=== PATIENT | male | born 1930 | race Caucasian/White ===

== ENCOUNTER 2016-12-06 11:38 | Day surgery (SDC) | payer MEDICARE, OTHER ==
[~2016-12-06 11:38] MED LIST: METOCLOPRAMIDE HCL 5 MG/ML VIAL IV PRN; MORPHINE SULFATE 2 MG/ML DISP.SYRIN IV PRN; NORMAL SALINE 1,000 ML IV PRN; ONDANSETRON HCL/PF 2 MG/ML VIAL IV PRN; oxyCODONE HCL/ACETAMINOPHEN 1 TAB TABLET PO PRN
[2016-12-06] MEDS ORDERED: RINGER'S SOLUTION,LACTATED 1,000 ML IV ONE (12:25)
[2016-12-06] MEDS ORDERED: NORMAL SALINE 1,000 ML IV ONE ×2 (13:25)
--- NOTE | 2016-12-06 13:37 | OR ---
Operative Report - Dictated Report Narrative: Location: Main OR Anesthesia: None Preoperative Diagnosis: BPH with obstruction Postoperative Diagnosis: Same Procedure: #1 flexible cystoscopy with washing for cytology and culture Indications: 86-year-old male underlying dementia and large prostate on ultrasound. Above-mentioned procedures indicated to assess bladder for BPH with obstruction versus other potential cause for urinary symptomatology. Description: Consent obtained. Placed in the supine position. Prepped and draped. Time-out taken . Flexible Scope inserted into the urethra and navigated to the bladder with ease. No tumors stones or suspicious lesions. He does have some early trabeculation but no significant I pressure change or evidence of permanent bladder damage. Ureters normal in number and position . On retroflexion there is a prominent intravesical prostate, does look a bit obstructing. Bladder capacity definitely a bit decreased. Washing obtained sent for cytology and culture. Prostate is medium to long with significant bilobar hypertrophy again does look a bit obstructing. Urethra otherwise normal. EBL: 0 Specimen: Washing for cytology and culture Condition: tolerate procedure Important Findings: Early obstructive change with decreased capacity and cystoscopic evidence of BPH with obstruction. Probably does have a component of neurogenic bladder/effect from memory issues. Plan is to start with Flomax and Proscar to treat BPH give him a little bit of time see if things improve and if not had Myrbetriq 50 mg daily in roughly 4-6 weeks. FOLLOW UP: I plan on seeing him in 3 months with an ultrasound and to see how he is doing. Can make decision on Myrbetriq at that time or sooner if he does not progress rapidly with the urinary symptomatology. TURP is an option but I would rather avoid especially in the setting of dementia as there are lower success rates secondary to underlying bladder pathology that is related primarily to the bladder and not to the obstructive causes. I did place him on Levaquin 500 mg 3 days.
[2016-12-06] MEDS ORDERED: LIDOCAINE HCL 10 APPL CARTRIDGE TP ONE (13:39)
[2016-12-06] MEDS ORDERED: LEVOFLOXACIN 500 MG TABLET PO ONE (14:00)
[2016-12-06 14:13] VITALS: BP 148/85
== END 2016-12-06 11:39 | disposition home or self-care (01) ==
LOC: AMB 11:38
PROVIDERS: ATTEND Urology
PROC: 3E1K88X Irrigation of Genitourinary Tract using Irrigating Substance, Via Natural or Artificial Opening Endoscopic, Diagnostic (ICD-10-PCS; 2016-12-06)
PROC: 0TJB8ZZ Inspection of Bladder, Via Natural or Artificial Opening Endoscopic (ICD-10-PCS; principal; 2016-12-06 13:00)
DX: N40.1 Benign prostatic hyperplasia with lower urinary tract symptoms (principal); N13.8 Other obstructive and reflux uropathy; F03.90 Unspecified dementia, unspecified severity, without behavioral disturbance, psychotic disturbance, mood disturbance, and anxiety; Z87.891 Personal history of nicotine dependence; Z68.31 Body mass index [BMI] 31.0-31.9, adult

== ENCOUNTER 2019-03-27 18:40 | Inpatient (IN) ==
--- NOTE | 2019-03-27 18:56 | ERNOTE ---
Lower Extremity HPI - Narrative Date of Service: 03/27/19 - General Lower Extremities Pain: hip: right Time Seen by Provider: 03/27/19 18:49 Source: RN notes reviewed, old records Exam Limitations: dementia - Immun/Allergies/Home Medications Immunizations: IMMUNIZATION HX Immunizations Up to Date Yes History of Influenza Vaccine More Information Required Allergies/Adverse Reactions: Allergies Allergy/AdvReac Type Severity Reaction Status Date / Time No Known Allergies Allergy Verified 03/27/19 18:46 Home Medications: HOME MEDICATIONS ALPRAZolam [Xanax] 0.25 mg PO BID PRN 12/05/16 [Last Taken Unknown] Lisinopril [Zestril] 10 mg PO DAILY 12/05/16 [Last Taken Unknown] Memantine HCl [Namenda] 5 mg PO DAILY 12/05/16 [Last Taken Unknown] Mirabegron [Myrbetriq] 50 mg PO DAILY 12/05/16 [Last Taken Unknown] Sertraline HCl [Zoloft] 50 mg PO DAILY 12/05/16 [Last Taken Unknown] Finasteride [Proscar] 5 mg PO DAILY #30 tablet 12/06/16 [Last Taken Unknown] Levofloxacin [Levaquin] 500 mg PO DAILY #3 tablet 12/06/16 [Last Taken Unknown] Tamsulosin HCl [Flomax] 0.4 mg PO HS #30 cap.er.24h 12/06/16 [Last Taken Unknown] Alprazolam 1 mg PO TID 03/27/19 [Last Taken Unknown] busPIRone HCL [Buspar] 10 mg PO BID 03/27/19 [Last Taken Unknown] - History of Present Illness Narrative: Jair is a 88-year-old male brought to the emergency department from the [facility] with right hip pain due to a fall. He apparently fell out of his chair earlier this evening. His detention records indicate that he has had several falls in the last 24 hours. He has a history of dementia and has a history of combative behavior at times. He was given 50 mcg of fentanyl by EMS personnel in route and is currently resting comfortably. Date (Duration): 03/27/19 Time (Timing): 18:00 Method of Injury: Reports: fell Reason for Fall: Reports: unknown Prior Treament: Denies: recently seen Review of Systems - Narrative Narrative: Unable to obtain ROS due to patient condition Medical History (Last Reviewed 03/27/19 @ 20:56 by Katy Santillan NP) Anxiety Arthritis Dementia Hypertension Insomnia Memory impairment Fracture, tibia Surgical History: Surgical History (Last Reviewed 03/27/19 @ 20:56 by Katy Santillan NP) History of knee replacement procedure of left knee Social History: (Last Reviewed 03/27/19 @ 20:56 by Katy Santillan NP) Social History: detention: Yes current occupational status: retired Highest education level completed: high school graduate Tobacco: Smoking Status: Former smoker Physical Exam - Physical Exam General Appearance: Present: wd/wn, no apparent distress, sleeping/easy to arouse Head Exam: Present: normal inspection, no evidence of injury Respiratory: Present: no respiratory distress, normal breath sounds, no accessory muscle use, lungs clear Cardiovascular/Chest: Present: regular rate, rhythm, normal peripheral pulses Peripheral Pulses: N=norm/S=strong/W=weak/B=bound/A=absent: Dorsalis-pedis (R): Normal, Dorsalis-pedis (L): Normal Gastrointestinal/Abdominal: Present: normal bowel sounds, nondistended, soft Extremity Exam: Present: no edema, other - Right leg shortened and externally rotated Skin Exam: Present: normal color, warm/dry Progress - Results and Orders Patient's Lab Results:: I have reviewed the patient's lab results. - Vital Signs Patient's Vital Signs:: I have reviewed the patient's vital signs. Vital Signs: Vital Signs 03/27/19 18:43 Temperature 36.1 C Pulse Rate 107 H Respiratory Rate 21 H Blood Pressure 179/105 H O2 Sat by Pulse Oximetry 99 - EKG EKG #1 EKG: NSR - With first-degree AV block EKG read: Reviewed by me - X-Ray X-Ray #1 X-Ray: hip - Right Interpretation: Interp. by me X-ray Comments: Intertrochanteric fracture of right femur X-Ray #2 X-Ray: chest Interpretation: Interp. by me X-ray Comments: Cardiomegaly without acute cardiopulmonary findings - Progress/Reassessment Chief Complaint: Hip Pain/Injury Progress:: Unchanged Plan - Plan Plan: Dr. Mitchell was contacted and plans to repair the hip fracture tomorrow as long as the patient is able to be medically cleared. Dr. Ag was then contacted and agreed to admit the patient and manage him medically. Departure Clinical Impression: Hip fracture Qualifiers: Encounter type: initial encounter Fracture type: closed Laterality: right Qualified Code(s): S72.001A - Fracture of unspecified part of neck of right femur, initial encounter for closed fracture - Departure Disposition: Still a patient Condition: Stable
[2019-03-27 20:12] LABS: Hemoglobin 13.8 gm/dL (13.5-18.0); Mean Cell Volume 97.9 fl (78-100); Mean Corpuscular Hemoglobin 32.9 pg (27-31); Mean Corpuscular Hgb Conc 33.7 g/dl (32-36); Mean Platelet Volume 9.6 fl (8-11.3); Neutrophil # 4.9 K/mm3 (1.3-6.0); Neutrophil % 76.2 % (42-75.0); Platelet Count 272 K/mm3 (150-450); Red Blood Count 4.19 M/mm3 (4.7-6.0); Red Cell Distribution Width 12.5 % (11.5-14.0); White Blood Count 6.4 K/mm3 (4.0-10.5)
[2019-03-27 20:29] LABS: INR 1.12 INR (0.92-1.08)
[2019-03-27 20:36] LABS: Albumin * 4.3 gm/dl (3.4-5.0); Anion Gap 15.5 mmol/L (6.8-13.8); BUN/Creatinine Ratio 18.8 (9.0-21.6); Bilirubin, Total 0.7 mg/dL (0.0-1.1); Ca. Corrected For Albumin 8.5 mg/dL (8.4-10.2); Calcium * 9.1 mg/dL (7.9-10.9); Carbon Dioxide 26.2 mmol/L (24-32.6); Potassium 3.7 mmol/L (3.4-4.6); Total Protein 7.8 gm/dL (6.2-8.2)
[2019-03-27] MEDS ORDERED: KETOROLAC TROMETHAMINE 15 MG/ML VIAL IV PRN (22:21)
[2019-03-27] MEDS ORDERED: KETOROLAC TROMETHAMINE 30 MG/ML VIAL IV ONE (22:21)
[2019-03-27] MEDS ORDERED: MORPHINE SULFATE 4 MG/ML SYRG IV PRN (22:21)
--- NOTE | 2019-03-28 06:26 | HP ---
Chief Complaint - Chief Complaint Date of Service: 03/28/19 Time of Service: 06:25 Chief Complaint: right Hip Fracture History of Present Illness: 88-year-old M with PMHX of multiple falls in the last 24 hours, Insomnia, Memory Impairment/Dementia with combative behavior, Arthritis, Anxiety and previous fracture of the tibia s/p repair brought to [facility] ER from [facility] with c/o right hip pain secondary to fall. PCP: Dr. Arthur Henderson. Patient fell out of chair yesterday evening and brought in for further evaluation. Due to his combative behavior 50mcg of fentanyl was administered, and patient was resting comfortably upon arrival to the ER. On arrival to ER, VSS with exception of mild tachycardia. HIP X-RAY demonstrated an acute appearing right transcervical femoral neck fracture with some foreshortening. 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 There is no joint dislocation. CXR demonstrated small opacities with recommendation to follow up with repeat CXR in 6-8 weeks for resolution. EKG reviewed, NSR with Left Ant. Fascicular block with possible LVH, in comparison to last EKG completed in 09/26/2010 these are new changes, but highly doubt these changes are recent since its been 8 years. Patient has been combative overnight, received 1mg of Ativan and patient is resting comfortably. VSS. PE is largely unremarkable. On mIVFs and patient is NPO for tentative surgery. Dr. Mitchell (Ortho) consulted for higher level of care. Medical History (Last Reviewed 03/27/19 @ 20:56 by Katy Santillan NP) Anxiety Arthritis Dementia Hypertension Insomnia Memory impairment Fracture, tibia Surgical History: Surgical History (Last Reviewed 03/27/19 @ 20:56 by Katy Santillna NP) History of knee replacement procedure of left knee Social History: (Last Reviewed 03/27/19 @ 20:56 by Katy Santillan NP) Social History: long term: Yes current occupational status: retired Highest education level completed: high school graduate Tobacco: Smoking Status: Former smoker Review Of Systems (GEN) - Review of Systems Generalized/Overall Review: Present: Weakness Respiratory: Absent: Shortness of Breath Cardiac: Absent: Chest Pain, Edema Abdominal: Absent: Abdominal Pain Musculoskeletal: Present: Joint Pain - right hip pain. Absent: Joint Swelling Neurological: Present: Other - dementia with combative behavior Skin: Present: Dryness Immunizations: IMMUNIZATION HX Immunizations Up to Date Yes History of Influenza Vaccine More Information Required Allergies/Adverse Reactions: Allergies Allergy/AdvReac Type Severity Reaction Status Date / Time No Known Allergies Allergy Verified 03/27/19 18:46 Home Medications: HOME MEDICATIONS ALPRAZolam [Xanax] 1 mg PO TID 12/05/16 [Last Taken Unknown] Lisinopril [Zestril] 2.5 mg PO DAILY 12/05/16 [Last Taken Unknown] Memantine HCl [Namenda] 5 mg PO BID 12/05/16 [Last Taken Unknown] Sertraline HCl [Zoloft] 50 mg PO DAILY 12/05/16 [Last Taken Unknown] Finasteride [Proscar] 5 mg PO DAILY #30 tablet 12/06/16 [Last Taken Unknown] Tamsulosin HCl [Flomax] 0.4 mg PO HS #30 cap.er.24h 12/06/16 [Last Taken Unknown] ALPRAZolam [Xanax] 1 mg PO TID PRN 03/27/19 [Last Taken Unknown] Acetaminophen [Mapap] 1,000 mg PO BID 03/27/19 [Last Taken Unknown] Acetaminophen [Mapap] 1,000 mg PO DAILY PRN 03/27/19 [Last Taken Unknown] Bisacodyl [Dulcolax] 5 mg PO DAILY PRN 03/27/19 [Last Taken Unknown] Bisacodyl [Laxative] 10 mg PO DAILY PRN 03/27/19 [Last Taken Unknown] Bismuth Subsalicylate [Kaopectate] 30 ml PO PRN PRN 03/27/19 [Last Taken Unknown] Buspirone HCl 10 mg PO BID 03/27/19 [Last Taken Unknown] Calcium Carbonate/Vitamin D3 [Calcium 500 mg Chewable Tablet] 2 ea PO QID PRN 03/27/19 [Last Taken Unknown] Furosemide 20 mg PO DAILY PRN 03/27/19 [Last Taken Unknown] Ibuprofen 400 mg PO QID 03/27/19 [Last Taken Unknown] Lidocaine [Lidoderm] 1 ea TOPICAL DAILY 03/27/19 [Last Taken Unknown] Magnesium Hydroxide [Milk Of Magnesia] 30 ml PO DAILY PRN 03/27/19 [Last Taken Unknown] Exam - Exam Vital Signs: Vital Signs - Last Taken Temp 37.1 C 03/28/19 03:57 Pulse 77 03/28/19 03:57 Resp 18 03/28/19 03:57 BP 140/94 H 03/28/19 03:57 Pulse Ox 97 03/28/19 03:57 Constitutional: Present: Other - patient is sleeping, and with h/o dementia I highly doubt he is A0X3., Elderly ENT Exam: Present: hearing grossly normal Eye Exam: bilateral eye: normal inspection, PERRL, EOMI Neck: Present: non-tender, full range of motion, supple Respiratory: Present: chest non-tender, lungs clear, normal breath sounds, no respiratory distress, no accessory muscle use Cardiovascular/Chest: Present: normal peripheral pulses, regular rate, rhythm, no chest tenderness, no edema, no gallop, no JVD, no murmur Peripheral Pulses: dorsalis-pedis (R): 2+, dorsalis-pedis (L): 2+ Abdomen: Present: Normal bowel sounds, soft, nontender, nondistended Extremity: Present: normal range of motion, non-tender, normal inspection, no pedal edema Skin Exam: Present: normal color, warm/dry Neurologic: Present: other - unable to assess patient just received ativan 0.5 mg IV and is resting Appearance: Present: disheveled, other - dementia Eye contact: Present: uncooperative - without medication Diagnostic Studies: Abnormal Lab Results 03/27/19 03/27/19 03/27/19 Range/Units 20:10 20:10 20:10 RBC 4.19 L (4.7-6.0) M/mm3 Hct 41.0 L (42.0-52.0) % MCH 32.9 H (27-31) pg Immature Gran % (Auto) 0.50 H (0.001-0.429) % Neutrophils % 76.2 H (42-75.0) % Lymphocytes % 15.1 L (20-51) % Lymphocytes # 0.96 L (1.5-3.5) k/mm3 PT 11.0 H (9.1-10.7) Seconds INR (Anticoag Therapy) 1.12 H (0.92-1.08) INR Anion Gap 15.5 H (6.8-13.8) mmol/L Random Glucose 132 H (70-110) mg/dL Laboratory Results WBC 6.4 K/mm3 (4.0-10.5) 03/27/19 20:10 RBC 4.19 M/mm3 (4.7-6.0) L 03/27/19 20:10 Hgb 13.8 gm/dL (13.5-18.0) 03/27/19 20:10 Hct 41.0 % (42.0-52.0) L 03/27/19 20:10 MCV 97.9 fl (78-100) 03/27/19 20:10 MCH 32.9 pg (27-31) H 03/27/19 20:10 MCHC 33.7 g/dl (32-36) 03/27/19 20:10 RDW 12.5 % (11.5-14.0) 03/27/19 20:10 Plt Count 272 K/mm3 (150-450) 03/27/19 20:10 MPV 9.6 fl (8-11.3) 03/27/19 20:10 Immature Gran % (Auto) 0.50 % (0.001-0.429) H 03/27/19 20:10 Immature Gran # (Auto) 0.03 K/mm3 (0.000-0.0310) 03/27/19 20:10 Neutrophils % 76.2 % (42-75.0) H 03/27/19 20:10 Lymphocytes % 15.1 % (20-51) L 03/27/19 20:10 Monocytes % 6.6 % (0.0-9) 03/27/19 20:10 Eosinophils % 1.1 % (0.0-3.0) 03/27/19 20:10 Basophils % 0.5 % (0.0-1.0) 03/27/19 20:10 Nucleated RBC % 0.0 k/mm3 (0-1) 03/27/19 20:10 Neutrophils # 4.9 K/mm3 (1.3-6.0) 03/27/19 20:10 Lymphocytes # 0.96 k/mm3 (1.5-3.5) L 03/27/19 20:10 Monocytes # 0.4 k/mm3 (0.0-1.0) 03/27/19 20:10 Eosinophils # 0.1 k/mm3 (0.0-0.7) 03/27/19 20:10 Absolute Basophils 0.0 k/mm3 (0.0-0.1) 03/27/19 20:10 PT 11.0 Seconds (9.1-10.7) H 03/27/19 20:10 INR (Anticoag Therapy) 1.12 INR (0.92-1.08) H 03/27/19 20:10 PTT (Pasha) 25.0 Seconds (24-32) 03/27/19 20:10 Sodium 140 mmol/L (132-142) 03/27/19 20:10 Plasma Sodium 141 mmol/L (130-142) 03/27/19 20:10 Potassium 3.7 mmol/L (3.4-4.6) 03/27/19 20:10 Chloride 102 mmol/L (97-106) 03/27/19 20:10 Carbon Dioxide 26.2 mmol/L (24-32.6) 03/27/19 20:10 Anion Gap 15.5 mmol/L (6.8-13.8) H 03/27/19 20:10 BUN 16 mg/dL (6-23) 03/27/19 20:10 Creatinine 0.85 mg/dL (0.4-1.4) 03/27/19 20:10 Est GFR (Non-Af Amer) 91 mL/min (60-130) D 03/27/19 20:10 BUN/Creatinine Ratio 18.8 (9.0-21.6) 03/27/19 20:10 Random Glucose 132 mg/dL (70-110) H 03/27/19 20:10 Calcium 9.1 mg/dL (7.9-10.9) 03/27/19 20:10 Calcium Adj for Albumin 8.5 mg/dL (8.4-10.2) 03/27/19 20:10 Total Bilirubin 0.7 mg/dL (0.0-1.1) 03/27/19 20:10 AST 21 U/L (0-48) 03/27/19 20:10 ALT 27 U/L (19-67) 03/27/19 20:10 Alkaline Phosphatase 126 U/L (50-170) 03/27/19 20:10 Total Protein 7.8 gm/dL (6.2-8.2) 03/27/19 20:10 Albumin 4.3 gm/dl (3.4-5.0) 03/27/19 20:10 Assessment/Plan - Narrative Narrative: Assessment/Plan 1. Right Hip Fracture - Dr Mitchell Consulted, - Reviewed Labs, EKG, CXR and Hip X-Ray - VSS 2. Chronic Conditions - Will resume medications after surgery FEN: NPO after midnight, on mIVFs DVT PPX: SCDs. Will resume Lovenox 40mg SC Q24H, 12 hours s/p surgery CODE STATUS: DNR/DNI Disposition Patient is cleared for surgery Will follow up with patient post-op Will await Ortho Recommendations - Assessment/Plan (1) Hip fracture Problem: Acute Qualifiers: Encounter type: initial encounter Fracture type: closed Laterality: right Qualified Code(s): S72.001A - Fracture of unspecified part of neck of right femur, initial encounter for closed fracture (2) Dementia with behavioral disturbance Problem: Chronic Qualifiers: Dementia type: vascular dementia Qualified Code(s): F01.51 - Vascular dementia with behavioral disturbance (3) Arthropathy Problem: Chronic (4) Insomnia Problem: Chronic Qualifiers: Insomnia type: other insomnia Qualified Code(s): G47.09 - Other insomnia (5) Generalized anxiety disorder Problem: Chronic (6) Amnesia Problem: Chronic
[2019-03-28] MEDS ORDERED: LORazepam 2 MG/ML DISP.SYRIN IV ONE (06:37)
[2019-03-28] MEDS ORDERED: NORMAL SALINE 1,000 ML IV ONE (06:38)
[2019-03-28 07:48] LABS: Hematocrit 38.7 % (42.0-52.0); Hemoglobin 13.1 gm/dL (13.5-18.0); Mean Corpuscular Hemoglobin 33.2 pg (27-31); Mean Corpuscular Hgb Conc 33.9 g/dl (32-36); Mean Platelet Volume 9.9 fl (8-11.3); Neutrophil # 7.7 K/mm3 (1.3-6.0); Neutrophil % 82.8 % (42-75.0); Platelet Count 250 K/mm3 (150-450); Red Blood Count 3.95 M/mm3 (4.7-6.0); Red Cell Distribution Width 12.2 % (11.5-14.0); White Blood Count 9.3 K/mm3 (4.0-10.5)
[2019-03-28 09:00] LABS: Albumin * 3.8 gm/dl (3.4-5.0); Anion Gap 13.3 mmol/L (6.8-13.8); BUN/Creatinine Ratio 18.3 (9.0-21.6); Bilirubin, Total 1.2 mg/dL (0.0-1.1); Ca. Corrected For Albumin 8.5 mg/dL (8.4-10.2); Calcium * 8.7 mg/dL (7.9-10.9); Carbon Dioxide 26.7 mmol/L (24-32.6); Total Protein 7.1 gm/dL (6.2-8.2)
[2019-03-28] MEDS ORDERED: ceFAZolin SODIUM 1 GM VIAL IV PRN (09:06)
--- NOTE | 2019-03-28 09:06 | CONS ---
[facility] - General Date of Service: 03/28/19 Narrative: Mr. Weems is an 88-year-old gentleman who lives in a nursing facility. He was brought into the emergency department after a fall with an inability to weight- bear on the right side. He was found to have a displaced basicervical right femoral neck fracture. He was admitted to the floor for preoperative optimization. He is resting in bed at this time. He is arousable but does not follow commands. He has noted dementia. Source: RN/MD Exam Limitations: clinical condition - History of Present Illness Timing/Duration: 24 hours Severity: mild Modifying Factors - (Worsens): Reports: movement Modifying Factors - (Improves): Reports: immobilization Allergies/Adverse Reactions: Allergies No Known Allergies Allergy (Verified 03/27/19 18:46) Home Medications: Home Medications Medication Instructions Recorded Last Taken ALPRAZolam [Xanax] 1 mg PO TID 12/05/16 Unknown Lisinopril [Zestril] 2.5 mg PO DAILY 12/05/16 Unknown Memantine HCl [Namenda] 5 mg PO BID 12/05/16 Unknown Sertraline HCl [Zoloft] 50 mg PO DAILY 12/05/16 Unknown Finasteride [Proscar] 5 mg PO DAILY #30 tablet 12/06/16 Unknown Tamsulosin HCl [Flomax] 0.4 mg PO HS #30 cap.er.24h 12/06/16 Unknown ALPRAZolam [Xanax] 1 mg PO TID PRN 03/27/19 Unknown Acetaminophen [Mapap] 1,000 mg PO BID 03/27/19 Unknown Acetaminophen [Mapap] 1,000 mg PO DAILY PRN 03/27/19 Unknown Bisacodyl [Dulcolax] 5 mg PO DAILY PRN 03/27/19 Unknown Bisacodyl [Laxative] 10 mg PO DAILY PRN 03/27/19 Unknown Bismuth Subsalicylate [Kaopectate] 30 ml PO PRN PRN 03/27/19 Unknown Buspirone HCl 10 mg PO BID 03/27/19 Unknown Calcium Carbonate/Vitamin D3 2 ea PO QID PRN 03/27/19 Unknown [Calcium 500 mg Chewable Tablet] Furosemide 20 mg PO DAILY PRN 03/27/19 Unknown Ibuprofen 400 mg PO QID 03/27/19 Unknown Lidocaine [Lidoderm] 1 ea TOPICAL DAILY 03/27/19 Unknown Magnesium Hydroxide [Milk Of 30 ml PO DAILY PRN 03/27/19 Unknown Magnesia] Procedures Administration of [id number], combined (04/29/10) Closure of skin and subcutaneous tissue of other sites (04/29/10) Inspection of Bladder, Via Natural or Artificial Opening Endoscopic (12/06/16) Irrigation of Genitourinary Tract using Irrigating Substance, Via Natural or Artificial Opening Endoscopic, Diagnostic (12/06/16) Total knee replacement (10/03/10) Medications - Medications Current Medications: Current Medications Sodium Chloride (Sodium Chloride 0.9%) 1,000 mls @ 125 mls/hr IV .Q8H ONE Stop: 03/28/19 14:37 Last Admin: 03/28/19 07:47 Dose: 125 mls/hr Documented by: Review of Systems - Review of Systems Narrative: Unable to obtain from the patient Physical Examination - Exam Narrative: He is resting in bed. He is arousable but does not follow commands Right lower extremity: No skin breakdown or ecchymosis, palpable dorsalis pedis pulse, he does spontaneously move his foot some. Thigh is soft. He has minimal deformity. Vital Signs: Vital Signs - Last Taken Temp 36.5 C 03/28/19 06:42 Pulse 79 03/28/19 06:42 Resp 14 03/28/19 06:42 BP 129/77 03/28/19 06:42 Pulse Ox 97 03/28/19 06:42 O2 Oxygen Delivery Method Room Air - Results and Findings: Narrative: Right hip series: Displaced basicervical right femoral neck fracture with minimal degenerative change Lab/Microbiology results last 24 hrs: Abnormal/Pending Laboratory Last 24 HRS 03/28/19 03/28/19 03/27/19 07:35 07:35 20:10 RBC 3.95 L Hgb 13.1 L Hct 38.7 L MCH 33.2 H Immature Gran % (Auto) Neutrophils % 82.8 H Lymphocytes % 9.4 L Neutrophils # 7.7 H Lymphocytes # 0.87 L PT INR (Anticoag Therapy) Anion Gap 15.5 H Random Glucose 132 H 132 H Total Bilirubin 1.2 H 03/27/19 03/27/19 20:10 20:10 RBC 4.19 L Hgb Hct 41.0 L MCH 32.9 H Immature Gran % (Auto) 0.50 H Neutrophils % 76.2 H Lymphocytes % 15.1 L Neutrophils # Lymphocytes # 0.96 L PT 11.0 H INR (Anticoag Therapy) 1.12 H Anion Gap Random Glucose Total Bilirubin - Assessments/Findings (1) Hip fracture Diagnosis(s): The plan will be for right hip hemiarthroplasty. Consent will need to be obtained from the power of managing attorney. If he is stable for surgery the plan is to proceed today. Problem: Acute Qualifiers: Encounter type: initial encounter Fracture type: closed Laterality: right Qualified Code(s): S72.001A - Fracture of unspecified part of neck of right femur, initial encounter for closed fracture
--- NOTE | 2019-03-28 09:36 | ANES ---
Anesthesia Pre Procedure Eval Vitals/Labs: Last Vital Signs Temp 36.5 C 03/28/19 06:42 Pulse 79 03/28/19 06:42 Resp 14 03/28/19 06:42 BP 129/77 03/28/19 06:42 Pulse Ox 97 03/28/19 06:42 HOME MEDICATIONS ALPRAZolam [Xanax] 1 mg PO TID 12/05/16 [Last Taken Unknown] Lisinopril [Zestril] 2.5 mg PO DAILY 12/05/16 [Last Taken Unknown] Memantine HCl [Namenda] 5 mg PO BID 12/05/16 [Last Taken Unknown] Sertraline HCl [Zoloft] 50 mg PO DAILY 12/05/16 [Last Taken Unknown] Finasteride [Proscar] 5 mg PO DAILY #30 tablet 12/06/16 [Last Taken Unknown] Tamsulosin HCl [Flomax] 0.4 mg PO HS #30 cap.er.24h 12/06/16 [Last Taken Unknown] ALPRAZolam [Xanax] 1 mg PO TID PRN 03/27/19 [Last Taken Unknown] Acetaminophen [Mapap] 1,000 mg PO BID 03/27/19 [Last Taken Unknown] Acetaminophen [Mapap] 1,000 mg PO DAILY PRN 03/27/19 [Last Taken Unknown] Bisacodyl [Dulcolax] 5 mg PO DAILY PRN 03/27/19 [Last Taken Unknown] Bisacodyl [Laxative] 10 mg PO DAILY PRN 03/27/19 [Last Taken Unknown] Bismuth Subsalicylate [Kaopectate] 30 ml PO PRN PRN 03/27/19 [Last Taken Unknown] Buspirone HCl 10 mg PO BID 03/27/19 [Last Taken Unknown] Calcium Carbonate/Vitamin D3 [Calcium 500 mg Chewable Tablet] 2 ea PO QID PRN 03/27/19 [Last Taken Unknown] Furosemide 20 mg PO DAILY PRN 03/27/19 [Last Taken Unknown] Ibuprofen 400 mg PO QID 03/27/19 [Last Taken Unknown] Lidocaine [Lidoderm] 1 ea TOPICAL DAILY 03/27/19 [Last Taken Unknown] Magnesium Hydroxide [Milk Of Magnesia] 30 ml PO DAILY PRN 03/27/19 [Last Taken Unknown] Allergies/Adverse Reactions: Allergies Allergy/AdvReac Type Severity Reaction Status Date / Time No Known Allergies Allergy Verified 03/27/19 18:46 - Planned Procedure Planned Procedure: Right Hip Fracture,Fall,Confusion Medication List Reviewed:: Yes Allergies Verified: Yes Medical History (Last Reviewed 03/28/19 @ 09:32 by Esteban Jasmine CRNA) Anxiety Arthritis Dementia Hypertension Insomnia Memory impairment Fracture, tibia Surgical History (Last Reviewed 03/28/19 @ 09:32 by Esteban Jasmine CRNA) History of knee replacement procedure of left knee - Family Anesthesia History Family History:: no untoward family reactions to anesthesia, no familial bleeding tendencies, no family history of clotting disorders, no family history of premature - Airway/Neck/Teeth Mallampatti Score: 3 - difficult to assess Thyromental (T-M) distance: > 6 cm Mandibulo Hyoid distance: > 3 cm - Respiratory Respiratory Physical: rhonchi Smoking Status: Never smoker - unsure Sleep Apnea currently treated: No Sleep Apnea by current assessment: No - Cardiovascular Cardiac History: hypertension Tolerate Activity: Poor Heart Sounds: S1 & S2, Regular - Gastrointestinal NPO since: today - Anesthesia Assessment and Plan ASA Class: PS, III Anesthesia Type Plan: Spinal - INR1.12, not on an anticoagulant
[2019-03-28] MEDS ORDERED: ceFAZolin SODIUM 1 GM VIAL ONE (09:38)
[2019-03-28] MEDS ORDERED: ISOPROPYL ALCOHOL 480 APPL BTL MC ONE (09:38)
[2019-03-28] MEDS ORDERED: PROPOFOL VIAL IV ONE (09:52)
[2019-03-28] MEDS ORDERED: MIDAZOLAM HCL/PF 1 MG/ML VIAL ONE (09:52)
[2019-03-28] MEDS ORDERED: BUPIVACAINE HCL/PF 10 ML VIAL ONE (09:52)
[2019-03-28] MEDS: RINGER'S SOLUTION,LACTATED 1,000 ML IV PRN ×3 (12:15→17:02)
[2019-03-28] MEDS ORDERED: MAG HYDROX/ALUMINUM HYD/SIMETH 30 ML UDC PO PRN (13:37)
[2019-03-28] MEDS ORDERED: ACETAMINOPHEN 500 MG TABLET PO PRN (13:37)
--- NOTE | 2019-03-28 13:37 | OR ---
Operative Report - Dictated Report Narrative: Date: 03/28/2019 Preoperative diagnosis: Closed right hip displaced femoral neck fracture. Postoperative diagnosis: Closed right hip displaced femoral neck fracture Procedure: Right hip cemented monica-arthroplasty. Surgeon: Roland Mitchell M.D. Radar Engineering Teacher: Rolando Ta PA-C (provided essential set of skilled, educated hands that assisted with transfer, positioning, prepping, draping, retraction, manipulation, placement of implants, irrigation, closure wounds, and application of dressings all of which could not be performed by the available surgical crew) Anesthesia: Spinal. Complications: None Specimens: Bone. Estimated blood loss: 125 milliliters. Retained implants: Depuy [place] size 6 basic cemented femoral stem. Size 54 millimeter outside diameter self-centering bipolar head with +8.5 millimeter cobalt chromium 28 mm femoral head. Indications: Mr. Byers is a 88-year-old demented gentleman who fell at a halfway. This patient was evaluated on the floor and found to have sustained a displaced femoral neck fracture. The risks and benefits were discussed with the patient as well as any power of state attorney or family . The patient wished to proceed with surgical treatment. The risks, benefits, and alternatives discussed were , blood clots, bleeding, infection, nerve/tendon blood vessel/ injury, malposition of components, dislocation and/or instability of joint, intraoperative fracture, postoperative limited range of motion, persistent pain, failure of components, and need for additional procedures. Patient wished to proceed. Consent was obtained after answering all questions. Procedure: After marking the correct extremity on the floor, the patient was taken to the operating room. A timeout was performed. IV antibiotics consisting of Ancef were administered prior to the procedure. A spinal anesthetic was induced by anesthesia. A Hall catheter was inserted if not are in place. The patient was then transitioned to a lateral position on a well- padded pegboard. An axillary roll was placed. The head was in neutral po sition. The non-operative down leg was well-padded with SCD and WILL hose in place. The arms were supported and padded to protect from any undue pressure on the bony prominences and nerves. Well-padded anterior and posterior pelvic and chest posts were secured in order to maintain a stable position of the pelvis. This was placed so that the pelvis was perpendicular to the floor. The body was in line with the pelvis. Once it was felt that we had protected all the bony prominences and the patient was well secured with a safety belt as well, the leg was pre-scrubbed with alcohol, prepped and draped in a standard sterile fashion. A standard anterior lateral hip incision was marked out over the greater trochanter. Ioban drapes were then placed. The skin incision was then made. Sharp dissection with a scalpel utilizing cautery for hemostasis was carried out down to the gluteus and iliotibial band fascia. This was split in line with the skin incision. The greater trochanter bursa was excised. The anterior and posterior margins of the abductor tendon were identified. The anterior 1/2-1/3 of the tendon was tagged and reflected off the greater trochanter leaving a sleeve of tendon for repair at the completion of the case. This exposed the underlying hip joint capsule. An inverted T-type capsulotomy was made extending this up to the brim of the acetabulum. We encountered a hematoma at this point confirming an acute fracture as well as noted displacement of the femoral neck fracture. Using Homans to assist with elevation of the soft tissues off the anterior, superior, and inferior aspects of the femoral neck, the hip was then placed in a figure 4 position for a femoral neck cleanup cut to be made. With the leg in an externally rotated and adducted position, the cutting flag was utilized in order to jamila for a standard femoral neck cut approximately a fingerbreadth above the level of the lesser trochanter. This was done while protecting the surrounding soft tissues with Homans. The femoral head was then removed and sized for guidance on the size of the bipolar head. It was noted that there was no significant loss of articular cartilage on both the femoral head and weightbearing portions of the acetabulum. We then returned the leg to the table and turned our attention to the acetabulum. While protecting the surrounding soft tissues, the labrum and remaining tissue in the fovea were excised using a scalpel and cautery. The acetabulum was then protected with a sponge while we returned our attention to the femur. With the leg in a figure 4 position utilizing Homans for soft tissue protection, a box cutting osteotome, followed by [place] awl, followed by serial broaches were utilized in order to prepare the femur. It was found that a size 6 broach gave good axial and rotational stability. The proximal femur was visualized to ensure that there were no signs of fracture. A series of heads were trialed. It was found that a + 8.5 mm femoral head gave good overall stability. There is minimal longitudinal instability. Hip range of motion was able to reach full extension and external rotation to greater than 75 degrees prior to impingement along the posterior acetabulum. The hip was able to be flexed to greater than 90 degrees with internal rotation greater than 60 degrees prior to anterior impingement. The limb lengths were near equal based on comparison to the contralateral side . At this point was felt this was the appropriately sized femoral components as well as neck and femoral head. The trial implants were removed. A canal cement plug was placed distally and the canal was thoroughly irrigated using pulsatile vacuum brush device. The canal was then thoroughly dried with a suction device. The cement was vacuum mixed per the stevedore hold's instructions and placed into a cement gun. Cement was then placed in the dry irrigated femur using modern cementing technique using a pressurizing device. The stem was then placed in the appropriate version compared to her deering anatomy and held in place while the cement cured and the extruded cement was removed. Once the cement was fully cured, we ensured that the stem was stable and that there were no signs of fracture. The remaining extruded cement was removed, and the joint and the capsule were thoroughly evaluated to ensure there are no cement fragments. The final femoral bipolar head was then impacted in the place. The hip was then reduced and seated completely. The capsule was repaired with a single interrupted #1 Vicryl. The abductor tendon was repaired to the greater trochanter utilizing #5 Ethibond through drill holes. This was oversewn with #1 Vicryl. The fascia was closed with interrupted #1 Vicryl. The wounds were thoroughly irrigated as we closed in layers. The deep and subcutaneous fat layers were closed with 0 Vicryl. The subcutaneous tissue was closed with a running 3-0 Vicryl and the skin with shekhar and Dermabond. All sponge, needle, blade, and instrument counts were correct prior to closing the wounds. Sterile dressings consisting of 4 x 4's and tape were applied. The patient was awoken and transferred to her hospital bed and then to the postanesthesia care unit in stable condition. Postoperative condition: The plan is to return to the medical/surgical inpatient floor postoperatively. Postoperatively 24 hours of IV antibiotics, pain control, physical therapy, occupational therapy, and medical comanagement will be utilized. Patient will be weightbearing as tolerated with anterior hip precautions. Postoperative films will be obtained in the recovery room.
--- NOTE | 2019-03-28 13:54 | ANES ---
Post Anesthesia Discharge - Transfer of Care Transfer of Care handoff given to nurse: Yes - Discharge from PACU Discharge from PACU when meets criteria: Yes - Awake and comfortable.
--- NOTE | 2019-03-28 14:14 | ANES ---
Post Anesthesia Assessment - Vital Signs Vitals: Last Vital Signs Temp 36.7 C 03/28/19 14:10 Pulse 67 03/28/19 14:10 Resp 12 03/28/19 14:10 BP 136/60 03/28/19 14:10 Pulse Ox 98 03/28/19 14:10 Airway Patency: Normal - Mental Status Level Of Consciousness: Awake, Alert - Pain Level Pain Score: 0 - N/V Assessment Nausea/Vomiting Presence: None Dehydration:: No
[2019-03-28] MEDS: CEFAZOLIN SODIUM/DEXTROSE,ISO 1 GM/50 ML BAG IV SCH ×2 (14:50→20:38)
[2019-03-28] MEDS ORDERED: LORazepam 2 MG/ML DISP.SYRIN IV PRN (15:17)
[2019-03-28] MEDS: MORPHINE SULFATE 2 MG/ML DISP.SYRIN IV PRN ×2 (17:12→19:29)
[2019-03-28] MEDS: SENNOSIDES/DOCUSATE SODIUM 1 TAB TABLET PO SCH ×2 (19:25→20:46)
[2019-03-29] MEDS: MORPHINE SULFATE 2 MG/ML DISP.SYRIN IV PRN (00:46)
[2019-03-29] MEDS: CEFAZOLIN SODIUM/DEXTROSE,ISO 1 GM/50 ML BAG IV SCH (02:38)
[2019-03-29 06:02] LABS: Hematocrit 36.9 % (42.0-52.0); Hemoglobin 12.7 gm/dL (13.5-18.0); Mean Cell Volume 97.1 fl (78-100); Mean Corpuscular Hemoglobin 33.4 pg (27-31); Mean Corpuscular Hgb Conc 34.4 g/dl (32-36); Mean Platelet Volume 10.1 fl (8-11.3); Neutrophil # 8.9 K/mm3 (1.3-6.0); Neutrophil % 86.7 % (42-75.0); Platelet Count 229 K/mm3 (150-450); Red Cell Distribution Width 12.1 % (11.5-14.0); White Blood Count 10.2 K/mm3 (4.0-10.5)
[2019-03-29 06:16] LABS: Albumin * 3.4 gm/dl (3.4-5.0); Anion Gap 10.4 mmol/L (6.8-13.8); BUN/Creatinine Ratio 8.6 (9.0-21.6); Bilirubin, Total 1.5 mg/dL (0.0-1.1); Ca. Corrected For Albumin 8.4 mg/dL (8.4-10.2); Calcium * 8.2 mg/dL (7.9-10.9); Carbon Dioxide 27.4 mmol/L (24-32.6); Estimated Creat Clear 80.3; Potassium 3.8 mmol/L (3.4-4.6); Total Protein 6.7 gm/dL (6.2-8.2)
--- NOTE | 2019-03-29 07:45 | PN ---
Subjective - Date and Time Seen Date: 03/29/19 Time: 07:45 Subjective Narrative: No acute events overnight. Patient resting comfortably Objective - Review of Systems Generalized/Overall Review: Denies: Weakness, Fatigue Respiratory: Denies: Shortness of Breath Cardiac: Denies: Chest Pain Abdominal: Denies: Abdominal Pain Musculoskeletal Complaints: Denies: Joint Pain Neurological: Denies: Weakness, Pre-existing Deficit Skin: Denies: Dryness - Vitals Vitals: Last Vital Signs Temp 37.8 C 03/29/19 02:06 Pulse 97 03/29/19 06:35 Resp 16 03/29/19 06:35 BP 128/74 03/29/19 06:35 Pulse Ox 96 03/29/19 06:35 - Abnormal Lab Findings Abnormal Lab Findings: Abnormal Lab Results 03/28/19 03/28/19 03/29/19 Range/Units 07:35 07:35 05:15 RBC 3.95 L 3.80 L (4.7-6.0) M/mm3 Hgb 13.1 L 12.7 L (13.5-18.0) gm/dL Hct 38.7 L 36.9 L (42.0-52.0) % MCH 33.2 H 33.4 H (27-31) pg Neutrophils % 82.8 H 86.7 H (42-75.0) % Lymphocytes % 9.4 L 6.0 L (20-51) % Neutrophils # 7.7 H 8.9 H (1.3-6.0) K/mm3 Lymphocytes # 0.87 L 0.61 L (1.5-3.5) k/mm3 BUN/Creatinine Ratio (9.0-21.6) Random Glucose 132 H (70-110) mg/dL Total Bilirubin 1.2 H (0.0-1.1) mg/dL 03/29/19 Range/Units 05:15 RBC (4.7-6.0) M/mm3 Hgb (13.5-18.0) gm/dL Hct (42.0-52.0) % MCH (27-31) pg Neutrophils % (42-75.0) % Lymphocytes % (20-51) % Neutrophils # (1.3-6.0) K/mm3 Lymphocytes # (1.5-3.5) k/mm3 BUN/Creatinine Ratio 8.6 L (9.0-21.6) Random Glucose 148 H (70-110) mg/dL Total Bilirubin 1.5 H (0.0-1.1) mg/dL - Exam Constitutional: Present: No distress, Other - sleeping ENT Exam: Present: hearing grossly normal Neck: Present: non-tender, supple Respiratory: Present: lungs clear, no respiratory distress Cardiovascular/Chest: Present: normal peripheral pulses, regular rate, rhythm, no JVD, no murmur Abdomen: Present: Normal bowel sounds, soft Extremity: Present: normal inspection, normal capillary refill Skin Exam: Present: normal color Neurologic: Present: alert, oriented x 3 Appearance: Present: appropriate appearance Cauti Physician Documentation - Urinary Catheter Management Urethral (Hall) Reason for Continuing Indwelling Catheter: Not indwelling catheter Date of Insertion: 03/28/19 Time of Insertion: 10:30 Assessment/Plan Plan Narrative: 1. S/P right hip repair - Patient is resting comfortably. - Sleeping - Diet resumed - Follow ortho recommendations. - Problems/Diagnosis (1) Hip fracture Problem: Acute Qualifiers: Encounter type: initial encounter Fracture type: closed Laterality: right Qualified Code(s): S72.001A - Fracture of unspecified part of neck of right femur, initial encounter for closed fracture (2) Dementia with behavioral disturbance Problem: Chronic Qualifiers: Dementia type: vascular dementia Qualified Code(s): F01.51 - Vascular dementia with behavioral disturbance (3) Arthropathy Problem: Chronic (4) Insomnia Problem: Chronic Qualifiers: Insomnia type: other insomnia Qualified Code(s): G47.09 - Other insomnia (5) Generalized anxiety disorder Problem: Chronic (6) Amnesia Problem: Chronic
[2019-03-29] MEDS ORDERED: NORMAL SALINE 1,000 ML IV PRN (10:32)
[2019-03-29] MEDS: ONDANSETRON HCL/PF 2 MG/ML VIAL IV PRN (10:48)
[2019-03-29 11:23] LABS: CK Total * 406 U/L (0-259); CKMB 2.6 ng/mL (0.0-9.0)
[2019-03-29 11:24] LABS: Troponin I Less than 0.017 ng/mL (0.00-0.10)
[2019-03-29] MEDS ORDERED: LABETALOL HCL 5 MG/ML VIAL IV ONE (11:35)
[2019-03-29] MEDS: METOPROLOL TARTRATE 1 MG/ML AMPUL IV SCH ×3 (11:51→12:26)
--- NOTE | 2019-03-29 11:54 | PN ---
Progeskatlyn Note - Interim Date: 03/29/19 Time: 11:48 Narrative: 03/29/19 11:48 Notified by Nurse Tennille Olivera that patient aspirated and HR spiked. Ordered STAT EKG, CXR and Cardiac Panel. EKG cw atrial flutter with HR between 140-156 bpm. Ordered Metoprolol Tartrate 5mg IV to infuse over 2 minutes and repeat every 5 minutes as needed upto a total of 3 doses. Will follow up with PO 25 mg PO BID if he returns into sinus rhythm. If patient does not revert to NSR will consult Cardiology for further management. Patient on Anticoagulant. CXR not concerning for aspiration. Patient is not fully awake from his surgery, discontinued ativan, and morphine till patient is more responsive. Will consider Narcan if he does not improve
[2019-03-29] MEDS: INSULIN LISPRO 100 UNITS/ML VIAL SC SCH ×3 (12:17→20:28)
[2019-03-29] MEDS ORDERED: ENOXAPARIN SODIUM 40 MG/0.4 ML SYRG SC SCH (12:38)
[2019-03-29] MEDS ORDERED: DILTIAZEM HCL 125 MG in DEXTROSE 5 % IN WATER 100 ML IV PRN ×2 (12:40)
--- NOTE | 2019-03-29 12:47 | PN ---
Progess Note - Interim Date: 03/29/19 Time: 12:43 Narrative: 03/29/19 12:43 Notified patient did not revert. Advised Nurse JERRY Null to move patient to the SCU and start Cardizem drip and titrate accordingly Patient minimally responsive, not really following commands, not speaking and can squeeze hands. PE concerning for Acute CVA, STAT CT W/O contrast ordered, results pending
[2019-03-29] MEDS ORDERED: DILTIAZEM HCL 5 MG/ML VIAL IV ONE (17:03)
[2019-03-29] MEDS ORDERED: FUROSEMIDE 10 MG/ML VIAL IV ONE (18:12)
[2019-03-29] MEDS: ALBUTEROL SULFATE/IPRATROPIUM 3 ML NEBU IH SCH ×2 (18:59→22:44)
[2019-03-29] MEDS: SENNOSIDES/DOCUSATE SODIUM 1 TAB TABLET PO SCH (20:29)
[2019-03-29] MEDS ORDERED: METOPROLOL TARTRATE 25 MG TABLET PO SCH (21:00)
[2019-03-29] MEDS ORDERED: NORMAL SALINE 500 ML IV ONE (21:53)
[2019-03-30] MEDS: ONDANSETRON HCL/PF 2 MG/ML VIAL IV PRN (00:30)
[2019-03-30] MEDS ORDERED: KETOROLAC TROMETHAMINE 15 MG/ML VIAL IV ONE (01:14)
[2019-03-30] MEDS: ALBUTEROL SULFATE/IPRATROPIUM 3 ML NEBU IH SCH ×7 (02:27→23:30)
[2019-03-30] MEDS ORDERED: NORMAL SALINE 1,000 ML IV ONE (03:53)
[2019-03-30 05:27] LABS: Hemoglobin 10.5 gm/dL (13.5-18.0); Mean Cell Volume 99.7 fl (78-100); Mean Corpuscular Hemoglobin 33.8 pg (27-31); Mean Corpuscular Hgb Conc 33.9 g/dl (32-36); Mean Platelet Volume 10.2 fl (8-11.3); Platelet Count 196 K/mm3 (150-450); Red Blood Count 3.11 M/mm3 (4.7-6.0); Red Cell Distribution Width 12.6 % (11.5-14.0); White Blood Count 11.4 K/mm3 (4.0-10.5)
[2019-03-30 05:36] LABS: Total Cells Counted 100
[2019-03-30 05:41] LABS: Albumin * 2.4 gm/dl (3.4-5.0); BUN/Creatinine Ratio 15.5 (9.0-21.6); Ca. Corrected For Albumin 8.4 mg/dL (8.4-10.2); Calcium * 7.4 mg/dL (7.9-10.9); Carbon Dioxide 24.9 mmol/L (24-32.6); Potassium 3.9 mmol/L (3.4-4.6); Total Protein 5.6 gm/dL (6.2-8.2)
[2019-03-30] MEDS ORDERED: NOREPINEPHRINE BITARTRATE 4 MG in DEXTROSE 5 % IN WATER 496 ML IV PRN ×2 (05:50)
[2019-03-30] MEDS ORDERED: FUROSEMIDE 10 MG/ML VIAL IV ONE (05:51)
[2019-03-30 05:55] LABS: Band 2 % (0-2.0); Lymphocyte 4 % (20-51); Monocyte 6 % (0-9); Neutrophil 88 % (42-75)
[2019-03-30 05:56] LABS: Platelet Estimate Normal (NORMAL); RBC Morphology Normal (NORMAL)
[2019-03-30 06:33] LABS: Prothrombin Time (Patient) 13.2 Seconds (9.1-10.7)
[2019-03-30 06:44] LABS: INR 1.35 INR (0.92-1.08)
--- NOTE | 2019-03-30 07:47 | PN ---
Subjective - Date and Time Seen Date: 03/30/19 Time: 07:47 Subjective Narrative: Yesterday afternoon notified by Nurse Tennille RN, via phone call, that patient's heart rate spiked to 140-150s, and it appeared patient had aspirated. Patient awake, however could not speak or follow commands. Hemodynamically stable. Advised to obtain, STAT CT head w/o contrast, CXR, EKG, and Cardiac panel. EKG read over phone as atrial flutter with tachycardia, remaining workup largely unremarkable. Advised to administer metoprolol 5mg IV and infuse over two minutes and can repeat every 5 minutes upto 3 doses with failure to convert back NSR. Ordered Cardizem drip, converted into NSR prior to drip being started, drip cancelled. Started on Metoprolol 25 mg PO BID. Chart reviewed, sedatives and mIVFs discontinued. mIVFs continued to be administered post-op past the stated time, and approximately 5 L in 36 hours was administered. Notified by management and budget analyst nurse via call, patients lung sounds became more coarse, and appears fluid overloaded. Advised her to administer Lasix 20 mg IV x 1. Notified via call (early hours of the morning), patient is hypotensive, MAP < 65. Advised to administer a 1000mL bolus and start on mIVFs. Called to check on patient at 05:45 am, patient's condition was deteriorating, did not respond to bolus or mIVFs, hypoxic, arousable to vigorous sternal rub, decreased UOP, and hypotensive with MAP <65. Advised to start oxygen, transfer to SCU, start on Levophed drip according to protocol, titrate dose with target of MAP >65 and Systolic BP >90 and hold diuretics. Repeated CXR, held Lovenox, till PT/INR, CBC and CMP results were available. Started on SCDs. On evaluation, patient responsive to vigorous sternal rub. Within one hour of drip being started, patient became alert, able to speak, follow commands and passed bedside swallow test. Once target MAP and Systolic BP had been reached, began to diurese with Bumex 2 mg IV, UOP adequate. Objective - Review of Systems Generalized/Overall Review: Reports: Weakness, Fatigue. Denies: Chills, Fever Respiratory: Reports: Shortness of Breath, Orthopnea. Denies: Cough, Stridor, Wheezing Cardiac: Reports: Edema. Denies: Chest Pain, Palpitations, Syncope Abdominal: Denies: Abdominal Pain Genitourinary Symptoms: Reports: Oliguria. Denies: Burning, Itching, Urgency, Frequency, Dysuria Musculoskeletal Complaints: Denies: Joint Pain, Joint Swelling Neurological: Reports: Weakness Skin: Reports: Dryness - Vitals Vitals: Last Vital Signs Temp 37.1 C 03/30/19 04:07 Pulse 76 03/30/19 06:20 Resp 19 03/30/19 05:53 BP 76/41 L 03/30/19 06:20 Pulse Ox 96 03/30/19 06:20 - Abnormal Lab Findings Abnormal Lab Findings: Abnormal Lab Results 03/29/19 03/29/19 03/30/19 Range/Units 10:48 10:48 05:05 WBC 11.4 H (4.0-10.5) K/mm3 RBC 3.11 L (4.7-6.0) M/mm3 Hgb 10.5 L (13.5-18.0) gm/dL Hct 31.0 L (42.0-52.0) % MCH 33.8 H (27-31) pg Neutrophils % (Manual) 88 H (42-75) % Lymphocytes % (Manual) 4 L (20-51) % Neutrophils # (Manual) 10.0 H (1.3-6.0) K/mm3 Lymphocytes # (Manual) 0.5 L (1.5-3.5) k/mm3 PT (9.1-10.7) Seconds INR (Anticoag Therapy) (0.92-1.08) INR BUN (6-23) mg/dL Creatinine (0.4-1.4) mg/dL Est GFR (Non-Af Amer) (60-130) mL/min Random Glucose (70-110) mg/dL Calcium (7.9-10.9) mg/dL ALT (19-67) U/L Creatine Kinase 406 H (0-259) U/L B-Natriuretic Peptide 1126 H (5-650) pg/mL Total Protein (6.2-8.2) gm/dL Albumin (3.4-5.0) gm/dl 03/30/19 03/30/19 Range/Units 05:05 05:15 WBC (4.0-10.5) K/mm3 RBC (4.7-6.0) M/mm3 Hgb (13.5-18.0) gm/dL Hct (42.0-52.0) % MCH (27-31) pg Neutrophils % (Manual) (42-75) % Lymphocytes % (Manual) (20-51) % Neutrophils # (Manual) (1.3-6.0) K/mm3 Lymphocytes # (Manual) (1.5-3.5) k/mm3 PT 13.2 H (9.1-10.7) Seconds INR (Anticoag Therapy) 1.35 H (0.92-1.08) INR BUN 24 H D (6-23) mg/dL Creatinine 1.55 H D (0.4-1.4) mg/dL Est GFR (Non-Af Amer) 45 L D (60-130) mL/min Random Glucose 142 H (70-110) mg/dL Calcium 7.4 L (7.9-10.9) mg/dL ALT 14 L (19-67) U/L Creatine Kinase (0-259) U/L B-Natriuretic Peptide (5-650) pg/mL Total Protein 5.6 L (6.2-8.2) gm/dL Albumin 2.4 L (3.4-5.0) gm/dl - EKG/Xray Findings EKG: NSR - on telemetry once in SCU, atrial fibrillation - Paroxysmal A-fib with RVR EKG read: Reviewed by me XRAY: chest Interpretation: Reviewed by me - Cardiomegaly with Pulmonary vascular congestion - Exam Constitutional: Present: Alert, Oriented x3, Cooperative, Elderly ENT Exam: Present: hearing grossly normal Neck: Present: full range of motion, supple Respiratory: Present: no respiratory distress, no accessory muscle use, crackles - diffuse Cardiovascular/Chest: Present: normal peripheral pulses, regular rate, rhythm, no chest tenderness, no edema, JVD Abdomen: Present: Normal bowel sounds, soft, nondistended Extremity: Present: no pedal edema, no calf tenderness, slow capillary refill Skin Exam: Present: cool/dry Neurologic: Present: alert, other - can follow commands Appearance: Present: impaired remote memory Eye contact: Present: decreased rate of speech Cauti Physician Documentation - Urinary Catheter Management Urethral (Epperson) Cath placed during this visit: 03/28/19 Urethral Indwelling: Yes Reason for Continuing Indwelling Catheter: ICU pt getting diuretics Date of Insertion: 03/28/19 Time of Insertion: 10:30 Assessment/Plan Plan Narrative: Assessment/Plan 88 y/o M admitted for Right hip fracture now s/p right hip cemented monica- arthroplasty POD #2, with new onset Congestive Heart Failure resulting in Cardiorenal Failure, Metabolic Encephalopathy and Cardiogenic shock. Now on Levophed Drip. Cardiogenic Shock * Suspect cardiogenic due to CHF, Acute renal failure with Oliguria, Metabolic Encephalopathy and Hypoxia. * Levophed drip, titrate with target MAP > 65 and Systolic BP >90 * Once target goal for MAP and BP have been achieved will start to Bumex 2 mg IV Q12H * If UOP is less than 0.5 mL/kg/hr will consider adding Dobutamine drip * Lactate pending * Continuous Telemetry New onset of congestive heart failure * BNP> 1100 * CXR cw cardiomegaly and prominent pulmonary vasculature congestion * EKG NSR * Cardiac Panel unremarakable * Levophed should help to increase Cardiac Function and Output * Bumex 2mg IV every 12 hours * Strict I's and O's * Fluid resctriction of 1500mL * Echo pending Cardiorenal syndrome with acute renal failure (Baseline Cr 0.7-0.8) with Oligouria * Cr. 1.55 with GFR of 45, acute change within 24 hours * Continue epperson catheter * Monitor output, UOP goal: 0.5mL/kg/hr * Will consider Dobutamine if UOP is not adequate * Concern this may be intrinsic renal failure, will continue to monitor, if warranted will do further workup Hypoxia, Hypotension and Metabolic Encephalopathy most likely secondary to Cardiogenic Shock * On 1L NC, SpO2 > 92 % when awake and > 88% when sleeping * On Levophed * Acute Metabolic Encephalopathy resolved * D/C Neuro Checks Atrial fibrillation with rapid ventricular response * Paroxysmal * Stopped Metoprolol due acute heart failure * Will resume upon discharge * Continue to monitor for A-fib RVR Leukocytosis * Most likely reactive due to cardiogenic shock * No signs of infection, UA and CXR not concerning for infection * Will continue to monitor Hip fracture s/p right hip cemented monica-arthroplasty POD #2 * C/D/I * Follow as per ortho recommendations Hyperglycemia not in the setting to Type II Diabetes Mellitus * Most likely reactive * Will continue to monitor * Insulin LDSS TID with meals FEN: Fluid restriction of 1500mL in 24 hours. No added Salt, Renal and Heart Healthy Diet. Thick liquids and advance as tolerated. DVT PPX: Lovenox 40mg SC CODE STATUS: DNR/DNI DISPOSITION: - Once diuresed appropriately will wean off Oxygen and Levophed - Follow up on Echo - Wean off Oxygen - Repeat CMP & CBC Q6H x 2 - Follow as per ortho recommendations - Problems/Diagnosis (1) New onset of congestive heart failure Problem: Acute (2) Atrial fibrillation with rapid ventricular response Problem: Acute (3) Cardiorenal syndrome with renal failure Problem: Acute (4) Acute kidney failure Problem: Acute Qualifiers: Acute renal failure type: unspecified Qualified Code(s): N17.9 - Acute kidney failure, unspecified (5) Metabolic encephalopathy Problem: Acute (6) Leukocytosis Problem: Acute Qualifiers: Leukocytosis type: leukemoid reaction Qualified Code(s): D72.823 - Leukemoid reaction (7) Hyperglycemia Problem: Acute (8) Hip fracture Problem: Acute Qualifiers: Encounter type: initial encounter Fracture type: closed Laterality: right Qualified Code(s): S72.001A - Fracture of unspecified part of neck of right femur, initial encounter for closed fracture (9) Dementia with behavioral disturbance Problem: Chronic Qualifiers: Dementia type: vascular dementia Qualified Code(s): F01.51 - Vascular dementia with behavioral disturbance
[2019-03-30] MEDS: INSULIN LISPRO 100 UNITS/ML VIAL SC SCH (08:11)
[2019-03-30] MEDS: BUMETANIDE 0.25 MG/ML VIAL IV SCH ×2 (09:21→19:38)
[2019-03-30 10:21] LABS: Urine Appearance Clear (CLEAR); Urine Bilirubin Negative (NEGATIVE); Urine Color Yellow; Urine Ketone Negative (NEGATIVE); Urine Nitrite Negative (NEGATIVE); Urine Protein Negative (NEGATIVE); Urine Urobilinogen Normal (NORMAL)
[2019-03-30 10:22] LABS: Urine Bacteria None Seen; Urine Blood 150 /ul (NEGATIVE); Urine RBC 0-5 /hpf (0-5); Urine WBC 0-5 /hpf (0-5)
[2019-03-30] MEDS: traMADol HCL 50 MG TABLET PO PRN (10:37)
--- NOTE | 2019-03-30 10:37 | PN ---
Subjective - Date and Time Seen Date: 03/30/19 Time: 10:28 Subjective Narrative: Subjective: He is resting in bed at this time. He is more alert and communicative than preop. He is following commands. He had some altered mental status as well as some medical issues postoperatively which are being managed by the primary team. He has had limited activity with PT Physical exam: Alert Right lower extremity: Palpable dorsalis pedis pulse. Dressings clean and dry . Moving toes. No excessive drainage. Calf and thigh are soft and nontender. Assessment: Postop day 2 status post right hip monica-arthroplasty. Plan: Continue with physical and occupational therapy weightbearing as tolerated. Continue with anticoagulation. Continue bowel regimen. Will need 6 weeks with walker or assitive device to protect joint while ambulating during the recovery process. Objective - Vitals Vitals: Last Vital Signs Temp 37.1 C 03/30/19 04:07 Pulse 61 03/30/19 10:02 Resp 16 03/30/19 10:02 BP 110/63 03/30/19 10:00 Pulse Ox 99 03/30/19 10:02 - Abnormal Lab Findings Abnormal Lab Findings: Abnormal Lab Results 03/29/19 03/29/19 03/30/19 Range/Units 10:48 10:48 05:05 WBC 11.4 H (4.0-10.5) K/mm3 RBC 3.11 L (4.7-6.0) M/mm3 Hgb 10.5 L (13.5-18.0) gm/dL Hct 31.0 L (42.0-52.0) % MCH 33.8 H (27-31) pg Neutrophils % (Manual) 88 H (42-75) % Lymphocytes % (Manual) 4 L (20-51) % Neutrophils # (Manual) 10.0 H (1.3-6.0) K/mm3 Lymphocytes # (Manual) 0.5 L (1.5-3.5) k/mm3 PT (9.1-10.7) Seconds INR (Anticoag Therapy) (0.92-1.08) INR BUN (6-23) mg/dL Creatinine (0.4-1.4) mg/dL Est GFR (Non-Af Amer) (60-130) mL/min Random Glucose (70-110) mg/dL Calcium (7.9-10.9) mg/dL ALT (19-67) U/L Creatine Kinase 406 H (0-259) U/L B-Natriuretic Peptide 1126 H (5-650) pg/mL Total Protein (6.2-8.2) gm/dL Albumin (3.4-5.0) gm/dl Urine Blood (NEGATIVE) /ul 03/30/19 03/30/19 03/30/19 Range/Units 05:05 05:15 09:56 WBC (4.0-10.5) K/mm3 RBC (4.7-6.0) M/mm3 Hgb (13.5-18.0) gm/dL Hct (42.0-52.0) % MCH (27-31) pg Neutrophils % (Manual) (42-75) % Lymphocytes % (Manual) (20-51) % Neutrophils # (Manual) (1.3-6.0) K/mm3 Lymphocytes # (Manual) (1.5-3.5) k/mm3 PT 13.2 H (9.1-10.7) Seconds INR (Anticoag Therapy) 1.35 H (0.92-1.08) INR BUN 24 H D (6-23) mg/dL Creatinine 1.55 H D (0.4-1.4) mg/dL Est GFR (Non-Af Amer) 45 L D (60-130) mL/min Random Glucose 142 H (70-110) mg/dL Calcium 7.4 L (7.9-10.9) mg/dL ALT 14 L (19-67) U/L Creatine Kinase (0-259) U/L B-Natriuretic Peptide (5-650) pg/mL Total Protein 5.6 L (6.2-8.2) gm/dL Albumin 2.4 L (3.4-5.0) gm/dl Urine Blood 150 H (NEGATIVE) /ul Cauti Physician Documentation - Urinary Catheter Management Urethral (Hall) Date of Insertion: 03/28/19 Time of Insertion: 10:30 Assessment/Plan - Problems/Diagnosis (1) Hip fracture Problem: Acute Qualifiers: Qualified Code(s): S72.001A - Fracture of unspecified part of neck of right femur, initial encounter for closed fracture
[2019-03-30] MEDS: ENOXAPARIN SODIUM 40 MG/0.4 ML SYRG SC SCH (10:43)
[2019-03-30 11:10] LABS: Hemoglobin 11.5 gm/dL (13.5-18.0); Mean Cell Volume 99.1 fl (78-100); Mean Corpuscular Hemoglobin 33.5 pg (27-31); Mean Corpuscular Hgb Conc 33.8 g/dl (32-36); Mean Platelet Volume 9.7 fl (8-11.3); Neutrophil # 11.4 K/mm3 (1.3-6.0); Neutrophil % 86.8 % (42-75.0); Platelet Count 236 K/mm3 (150-450); Red Blood Count 3.43 M/mm3 (4.7-6.0); Red Cell Distribution Width 12.7 % (11.5-14.0); White Blood Count 13.1 K/mm3 (4.0-10.5)
[2019-03-30 11:22] LABS: Albumin * 2.7 gm/dl (3.4-5.0); BUN/Creatinine Ratio 18.2 (9.0-21.6); Bilirubin, Total 1.1 mg/dL (0.0-1.1); Ca. Corrected For Albumin 8.8 mg/dL (8.4-10.2); Calcium * 8.1 mg/dL (7.9-10.9); Carbon Dioxide 27.8 mmol/L (24-32.6); Potassium 3.8 mmol/L (3.4-4.6); Total Protein 6.4 gm/dL (6.2-8.2)
[2019-03-30] MEDS ORDERED: DILTIAZEM HCL 5 MG/ML VIAL IV ONE (14:16)
--- NOTE | 2019-03-30 14:35 | PN ---
Progess Note - Interim Date: 03/30/19 Time: 14:31 Narrative: 03/30/19 14:31 Notified by Tennille EDWARDS, patient is in A-fib RVR. Bolus of 25 mg Cardizem ordered Cardizem drip ordered and titrate according to protocol Wean down on Levo but Maintain MAP > 65 and SBP >90 Discussed management with Mimi Evangelista, recommended alternative if patient does not respond to cardizem, alternative could be amiodarone. Recommended to also wean down on Levophed
[2019-03-30] MEDS: DILTIAZEM HCL 125 MG in DEXTROSE 5 % IN WATER 100 ML IV PRN ×6 (14:53→20:24)
[2019-03-30 16:06] LABS: Hematocrit 34.3 % (42.0-52.0); Hemoglobin 11.8 gm/dL (13.5-18.0); Mean Cell Volume 97.2 fl (78-100); Mean Corpuscular Hemoglobin 33.4 pg (27-31); Mean Corpuscular Hgb Conc 34.4 g/dl (32-36); Mean Platelet Volume 10.7 fl (8-11.3); Neutrophil # 11.5 K/mm3 (1.3-6.0); Neutrophil % 88.5 % (42-75.0); Platelet Count 214 K/mm3 (150-450); Red Blood Count 3.53 M/mm3 (4.7-6.0); Red Cell Distribution Width 12.6 % (11.5-14.0)
[2019-03-30 16:22] LABS: Albumin * 2.4 gm/dl (3.4-5.0); Anion Gap 15.3 mmol/L (6.8-13.8); BUN/Creatinine Ratio 21.4 (9.0-21.6); Bilirubin, Total 0.9 mg/dL (0.0-1.1); Carbon Dioxide 22.4 mmol/L (24-32.6); Potassium 3.7 mmol/L (3.4-4.6); T4 Free * 1.16 ng/dL (0.76-1.46); TSH * 1.662 uIU/mL (0.358-3.74); Total Protein 6.4 gm/dL (6.2-8.2)
[2019-03-30] MEDS: SENNOSIDES/DOCUSATE SODIUM 1 TAB TABLET PO SCH ×2 (19:39→20:36)
[2019-03-30] MEDS ORDERED: VERAPAMIL HCL 80 MG TABLET PO ONE (19:45)
[2019-03-31] MEDS: ALBUTEROL SULFATE/IPRATROPIUM 3 ML NEBU IH SCH ×6 (03:45→22:29)
--- NOTE | 2019-03-31 05:56 | PN ---
Subjective - Date and Time Seen Date: 03/31/19 Time: 05:56 Subjective Narrative: no acute events overnight. weaned off levophed and cardizem drip. Cardioverted from A-fib RVR to NSR. Diuresed well. Objective - Review of Systems Generalized/Overall Review: Reports: Weakness Respiratory: Reports: Shortness of Breath, Orthopnea. Denies: Cough Cardiac: Denies: Chest Pain, Edema Abdominal: Denies: Abdominal Pain Musculoskeletal Complaints: Reports: Joint Pain Neurological: Reports: Weakness. Denies: Pre-existing Deficit Skin: Denies: Dryness - Vitals Vitals: Last Vital Signs Temp 36.3 C 03/31/19 02:07 Pulse 89 03/31/19 05:05 Resp 20 03/31/19 05:05 BP 112/60 03/31/19 05:05 Pulse Ox 97 03/31/19 05:05 - Abnormal Lab Findings Abnormal Lab Findings: Abnormal Lab Results 03/30/19 03/30/19 03/30/19 Range/Units 05:05 05:15 09:56 WBC (4.0-10.5) K/mm3 RBC (4.7-6.0) M/mm3 Hgb (13.5-18.0) gm/dL Hct (42.0-52.0) % MCH (27-31) pg Immature Gran % (Auto) (0.001-0.429) % Immature Gran # (Auto) (0.000-0.0310) K/mm3 Neutrophils % (42-75.0) % Neutrophils % (Manual) 88 H (42-75) % Lymphocytes % (20-51) % Lymphocytes % (Manual) 4 L (20-51) % Neutrophils # (1.3-6.0) K/mm3 Neutrophils # (Manual) 10.0 H (1.3-6.0) K/mm3 Lymphocytes # (1.5-3.5) k/mm3 Lymphocytes # (Manual) 0.5 L (1.5-3.5) k/mm3 PT 13.2 H (9.1-10.7) Seconds INR (Anticoag Therapy) 1.35 H (0.92-1.08) INR Plasma Sodium (130-142) mmol/L Carbon Dioxide (24-32.6) mmol/L Anion Gap (6.8-13.8) mmol/L BUN (6-23) mg/dL Creatinine (0.4-1.4) mg/dL Est GFR (Non-Af Amer) (60-130) mL/min Random Glucose (70-110) mg/dL ALT (19-67) U/L Albumin (3.4-5.0) gm/dl Urine Blood 150 H (NEGATIVE) /ul 03/30/19 03/30/19 03/30/19 Range/Units 11:03 11:03 15:52 WBC 13.1 H 13.0 H (4.0-10.5) K/mm3 RBC 3.43 L 3.53 L (4.7-6.0) M/mm3 Hgb 11.5 L 11.8 L (13.5-18.0) gm/dL Hct 34.0 L 34.3 L (42.0-52.0) % MCH 33.5 H 33.4 H (27-31) pg Immature Gran % (Auto) 0.60 H (0.001-0.429) % Immature Gran # (Auto) 0.04 H 0.08 H (0.000-0.0310) K/mm3 Neutrophils % 86.8 H 88.5 H (42-75.0) % Neutrophils % (Manual) (42-75) % Lymphocytes % 5.3 L 3.5 L (20-51) % Lymphocytes % (Manual) (20-51) % Neutrophils # 11.4 H 11.5 H (1.3-6.0) K/mm3 Neutrophils # (Manual) (1.3-6.0) K/mm3 Lymphocytes # 0.69 L 0.46 L (1.5-3.5) k/mm3 Lymphocytes # (Manual) (1.5-3.5) k/mm3 PT (9.1-10.7) Seconds INR (Anticoag Therapy) (0.92-1.08) INR Plasma Sodium 143 H (130-142) mmol/L Carbon Dioxide (24-32.6) mmol/L Anion Gap 15.0 H (6.8-13.8) mmol/L BUN 26 H (6-23) mg/dL Creatinine 1.43 H (0.4-1.4) mg/dL Est GFR (Non-Af Amer) 50 L (60-130) mL/min Random Glucose 167 H (70-110) mg/dL ALT 16 L (19-67) U/L Albumin 2.7 L (3.4-5.0) gm/dl Urine Blood (NEGATIVE) /ul 03/30/19 Range/Units 15:52 WBC (4.0-10.5) K/mm3 RBC (4.7-6.0) M/mm3 Hgb (13.5-18.0) gm/dL Hct (42.0-52.0) % MCH (27-31) pg Immature Gran % (Auto) (0.001-0.429) % Immature Gran # (Auto) (0.000-0.0310) K/mm3 Neutrophils % (42-75.0) % Neutrophils % (Manual) (42-75) % Lymphocytes % (20-51) % Lymphocytes % (Manual) (20-51) % Neutrophils # (1.3-6.0) K/mm3 Neutrophils # (Manual) (1.3-6.0) K/mm3 Lymphocytes # (1.5-3.5) k/mm3 Lymphocytes # (Manual) (1.5-3.5) k/mm3 PT (9.1-10.7) Seconds INR (Anticoag Therapy) (0.92-1.08) INR Plasma Sodium (130-142) mmol/L Carbon Dioxide 22.4 L (24-32.6) mmol/L Anion Gap 15.3 H (6.8-13.8) mmol/L BUN (6-23) mg/dL Creatinine (0.4-1.4) mg/dL Est GFR (Non-Af Amer) (60-130) mL/min Random Glucose 148 H (70-110) mg/dL ALT 14 L (19-67) U/L Albumin 2.4 L (3.4-5.0) gm/dl Urine Blood (NEGATIVE) /ul - EKG/Xray Findings EKG: NSR XRAY: chest Interpretation: Reviewed by me - CONCERN FOR ASPIRATION - Exam Constitutional: Present: Alert, No distress, Elderly. Absent: Oriented x3 ENT Exam: Present: hearing grossly normal Neck: Present: full range of motion, supple Respiratory: Present: lungs clear, normal breath sounds, no respiratory distress, no accessory muscle use. Absent: crackles, rales, wheezing Cardiovascular/Chest: Present: normal peripheral pulses, regular rate, rhythm, no chest tenderness, no edema, no JVD Abdomen: Present: Normal bowel sounds, soft Extremity: Present: normal inspection, no pedal edema, normal capillary refill Skin Exam: Present: normal color, warm/dry Neurologic: Present: alert, motor weakness, disoriented x 3 Appearance: Present: impaired recent memory, impaired remote memory Eye contact: Present: belligerkush Cauti Physician Documentation - Urinary Catheter Management Urethral (Epperson) Urethral Indwelling: Yes Date of Insertion: 03/28/19 Time of Insertion: 10:30 Assessment/Plan Plan Narrative: Assessment/Plan 88 y/o M admitted for Right hip fracture now s/p right hip cemented monica- arthroplasty POD #4 Cardiogenic Shock - Resvolved * Weaned off Levophed drip * Adequate UOP * Continuous Telemetry New onset of congestive heart failure * Diuresed 6700mL in 24 hours * d/c bumex. Start furosemide 20 mg po daily * Strict I's and O's * Fluid resctriction of 1500mL * Echo pending A-fib with RVR - Resolved * Weaned off cardizem drip * Cardioverted * Started on Diltiazem 60 mg PO BID Cardiorenal syndrome with acute renal failure- Resolved * Cr. 1.55 with GFR of 45, acute change within 24 hours * Cont epperson catheter * Adequate UOP Hypoxia, * On 1L NC, SpO2 > 92 % when awake and > 88% when sleeping * Wean off oxygen Leukocytosis * Most likely reactive due to cardiogenic shock * Will continue to monitor Hip fracture s/p right hip cemented monica-arthroplasty POD #4 * C/D/I * Follow as per ortho recommendations Hyperglycemia not in the setting to Type II Diabetes Mellitus * Most likely reactive * Will continue to monitor * Insulin LDSS TID with meals FEN: Fluid restriction of 1500mL in 24 hours. No added Salt, Renal and Heart Healthy Diet. Thick liquids and advance diet as tolerated. DVT PPX: Lovenox 40mg SC CODE STATUS: DNR/DNI DISPOSITION: - Continue epperson till PT eval - Await ortho and PT recommendations. - Monitor for aspiration - If patient spikes a fever treat for aspiration pneumonia - Repeat labs and CXR in AM. - Problems/Diagnosis (1) New onset of congestive heart failure Problem: Acute (2) Atrial fibrillation with rapid ventricular response Problem: Acute (3) Cardiorenal syndrome with renal failure Problem: Acute (4) Acute kidney failure Problem: Acute Qualifiers: Acute renal failure type: unspecified Qualified Code(s): N17.9 - Acute kidney failure, unspecified (5) Metabolic encephalopathy Problem: Acute (6) Leukocytosis Problem: Acute Qualifiers: Leukocytosis type: leukemoid reaction Qualified Code(s): D72.823 - Leukemoid reaction (7) Hyperglycemia Problem: Acute (8) Hip fracture Problem: Acute Qualifiers: Encounter type: initial encounter Fracture type: closed Laterality: right Qualified Code(s): S72.001A - Fracture of unspecified part of neck of right femur, initial encounter for closed fracture (9) Dementia with behavioral disturbance Problem: Chronic Qualifiers: Dementia type: vascular dementia Qualified Code(s): F01.51 - Vascular dementia with behavioral disturbance
[2019-03-31 06:35] LABS: Prothrombin Time (Patient) 11.4 Seconds (9.1-10.7)
[2019-03-31 06:39] LABS: Hematocrit 31.3 % (42.0-52.0); Hemoglobin 10.6 gm/dL (13.5-18.0); Mean Cell Volume 99.1 fl (78-100); Mean Corpuscular Hemoglobin 33.5 pg (27-31); Mean Corpuscular Hgb Conc 33.9 g/dl (32-36); Mean Platelet Volume 10.4 fl (8-11.3); Neutrophil # 10.2 K/mm3 (1.3-6.0); Neutrophil % 89.8 % (42-75.0); Platelet Count 247 K/mm3 (150-450); Red Blood Count 3.16 M/mm3 (4.7-6.0); Red Cell Distribution Width 12.4 % (11.5-14.0); White Blood Count 11.4 K/mm3 (4.0-10.5)
[2019-03-31 06:41] LABS: BUN/Creatinine Ratio 25.7 (9.0-21.6)
[2019-03-31 06:42] LABS: Albumin * 2.5 gm/dl (3.4-5.0); Anion Gap 12.5 mmol/L (6.8-13.8); Bilirubin, Total 0.9 mg/dL (0.0-1.1); Ca. Corrected For Albumin 9.4 mg/dL (8.4-10.2); Calcium * 8.5 mg/dL (7.9-10.9); Carbon Dioxide 29.1 mmol/L (24-32.6); INR 1.16 INR (0.92-1.08); Potassium 3.6 mmol/L (3.4-4.6); Total Protein 6.4 gm/dL (6.2-8.2)
[2019-03-31] MEDS: DILTIAZEM HCL 60 MG CAP.SR.12H PO SCH ×3 (07:06→17:45)
[2019-03-31] MEDS ORDERED: DILTIAZEM HCL 125 MG in DEXTROSE 5 % IN WATER 100 ML IV PRN ×2 (10:46)
[2019-03-31] MEDS ORDERED: DILTIAZEM HCL 5 MG/ML VIAL IV ONE (10:46)
[2019-03-31] MEDS: ENOXAPARIN SODIUM 40 MG/0.4 ML SYRG SC SCH (11:00)
[2019-03-31] MEDS ORDERED: FUROSEMIDE 20 MG TABLET PO SCH (11:00)
[2019-03-31 11:14] LABS: Urine Bilirubin Negative (NEGATIVE); Urine Blood 250 /ul (NEGATIVE); Urine Ketone Negative (NEGATIVE); Urine Nitrite Negative (NEGATIVE); Urine Protein 30 mg/dL (NEGATIVE); Urine Urobilinogen Normal (NORMAL)
--- NOTE | 2019-03-31 11:39 | PN ---
Progess Note - Interim Date: 03/31/19 Time: 11:00 Narrative: 03/31/19 11:37 Notified patient went into A-fib RVR. EKG obtained to confirm. Cardiac panel ordered. Advised to administer cardizem bolus of 25 mg and start cardizem drip. Patient couldn't tolerate PT, will keep epperson Notified concern for hematuria, advised to obtain UA for further evaluation.
[2019-03-31 11:46] LABS: Urine Appearance Cloudy (CLEAR); Urine Color Yellow; Urine WBC 0-5 /hpf (0-5)
[2019-03-31 11:47] LABS: Urine Bacteria TRACE; Urine Mucus Few - 1+
[2019-03-31 11:48] LABS: Urine Amorphous Sediment Moderate - 2+ (NONE-FEW)
--- NOTE | 2019-03-31 12:55 | PN ---
Subjective - Date and Time Seen Date: 03/31/19 Time: 11:45 Subjective Narrative: Subjective: He is up in the chair. Limited mobility with PT at this time. He is alert and communicating as was the case yesterday. He is following commands. Physical exam: Alert Right lower extremity: Palpable dorsalis pedis pulse. Dressings clean and dry. Moving toes. Calf and thigh are soft and nontender. Assessment: Postop day 3 status post right hip monica-arthroplasty. Plan: Continue with physical and occupational therapy weightbearing as tolerated. Continue with anticoagulation - will need 10 days total lovenox then daily aspirin unless needs any additional anticoagulation for medical issues. Continue bowel regimen. Will need 6 weeks with walker or assitive device to protect joint while ambulating during the recovery process. From and orthopedic standpoint OK for NH when medically stable. Continue PT, WBAT anterior hip precautions. Keep wound covered and dry, avoid contamination with urine. Follow-up 2-3 weeks. Ice to hip, alexia hose to right leg. Objective - Vitals Vitals: Last Vital Signs Temp 36.0 C 03/31/19 11:15 Pulse 110 H 03/31/19 11:19 Resp 20 03/31/19 11:15 BP 111/53 03/31/19 11:19 Pulse Ox 95 03/31/19 11:15 - Abnormal Lab Findings Abnormal Lab Findings: Abnormal Lab Results 03/30/19 03/30/19 03/31/19 Range/Units 15:52 15:52 06:18 WBC 13.0 H 11.4 H (4.0-10.5) K/mm3 RBC 3.53 L 3.16 L (4.7-6.0) M/mm3 Hgb 11.8 L 10.6 L (13.5-18.0) gm/dL Hct 34.3 L 31.3 L (42.0-52.0) % MCH 33.4 H 33.5 H (27-31) pg Immature Gran % (Auto) 0.60 H (0.001-0.429) % Immature Gran # (Auto) 0.08 H 0.05 H (0.000-0.0310) K/mm3 Neutrophils % 88.5 H 89.8 H (42-75.0) % Lymphocytes % 3.5 L 3.5 L (20-51) % Neutrophils # 11.5 H 10.2 H (1.3-6.0) K/mm3 Lymphocytes # 0.46 L 0.40 L (1.5-3.5) k/mm3 PT (9.1-10.7) Seconds INR (Anticoag Therapy) (0.92-1.08) INR Plasma Sodium (130-142) mmol/L Carbon Dioxide 22.4 L (24-32.6) mmol/L Anion Gap 15.3 H (6.8-13.8) mmol/L BUN (6-23) mg/dL BUN/Creatinine Ratio (9.0-21.6) Random Glucose 148 H (70-110) mg/dL ALT 14 L (19-67) U/L Albumin 2.4 L (3.4-5.0) gm/dl Urine Protein (NEGATIVE) mg/dL Urine Blood (NEGATIVE) /ul Urine RBC (0-5) /hpf Amorphous Sediment (NONE-FEW) Urine Mucus (NONE) 03/31/19 03/31/19 03/31/19 Range/Units 06:18 06:18 10:55 WBC (4.0-10.5) K/mm3 RBC (4.7-6.0) M/mm3 Hgb (13.5-18.0) gm/dL Hct (42.0-52.0) % MCH (27-31) pg Immature Gran % (Auto) (0.001-0.429) % Immature Gran # (Auto) (0.000-0.0310) K/mm3 Neutrophils % (42-75.0) % Lymphocytes % (20-51) % Neutrophils # (1.3-6.0) K/mm3 Lymphocytes # (1.5-3.5) k/mm3 PT 11.4 H (9.1-10.7) Seconds INR (Anticoag Therapy) 1.16 H (0.92-1.08) INR Plasma Sodium 143 H (130-142) mmol/L Carbon Dioxide (24-32.6) mmol/L Anion Gap (6.8-13.8) mmol/L BUN 26 H (6-23) mg/dL BUN/Creatinine Ratio 25.7 H (9.0-21.6) Random Glucose 156 H (70-110) mg/dL ALT 16 L (19-67) U/L Albumin 2.5 L (3.4-5.0) gm/dl Urine Protein 30 H (NEGATIVE) mg/dL Urine Blood 250 H (NEGATIVE) /ul Urine RBC 10-25 H (0-5) /hpf Amorphous Sediment Moderate - 2+ H (NONE-FEW) Urine Mucus Few - 1+ H (NONE) Cauti Physician Documentation - Urinary Catheter Management Urethral (Hall) Urethral Indwelling: Yes Date of Insertion: 03/28/19 Time of Insertion: 10:30 Assessment/Plan - Problems/Diagnosis (1) Hip fracture Problem: Acute Qualifiers: Encounter type: subsequent encounter Fracture type: closed Laterality: right Fracture healing: with routine healing Qualified Code(s): S72.001D - Fracture of unspecified part of neck of right femur, subsequent encounter for closed fracture with routine healing (2) Status post hip hemiarthroplasty Problem: Acute
[2019-03-31] MEDS ORDERED: NORMAL SALINE 1,000 ML IV ONE (15:30)
[2019-03-31] MEDS: SENNOSIDES/DOCUSATE SODIUM 1 TAB TABLET PO SCH (20:36)
[2019-04-01] MEDS: ALBUTEROL SULFATE/IPRATROPIUM 3 ML NEBU IH SCH ×6 (02:59→23:09)
[2019-04-01] MEDS: DILTIAZEM HCL 60 MG CAP.SR.12H PO SCH (05:16)
[2019-04-01] MEDS ORDERED: DILTIAZEM HCL 90 MG CAP.SR.12H PO SCH (06:15)
--- NOTE | 2019-04-01 06:15 | PN ---
Subjective - Date and Time Seen Date: 04/01/19 Time: 06:14 Subjective Narrative: No acute events overnight Objective - Review of Systems Generalized/Overall Review: Reports: Weakness Respiratory: Denies: Shortness of Breath, Orthopnea, Stridor, Wheezing Cardiac: Denies: Chest Pain, Edema, Palpitations Abdominal: Denies: Nausea, Vomiting Genitourinary Symptoms: Reports: Hematuria Musculoskeletal Complaints: Denies: Joint Pain, Back Pain, Joint Swelling Neurological: Reports: Weakness Skin: Reports: Dryness - Vitals Vitals: Last Vital Signs Temp 36.5 C 04/01/19 03:00 Pulse 106 H 04/01/19 05:16 Resp 14 04/01/19 05:00 BP 103/60 04/01/19 05:16 Pulse Ox 93 04/01/19 05:00 - Abnormal Lab Findings Abnormal Lab Findings: Abnormal Lab Results 03/31/19 03/31/19 03/31/19 Range/Units 06:18 06:18 06:18 WBC 11.4 H (4.0-10.5) K/mm3 RBC 3.16 L (4.7-6.0) M/mm3 Hgb 10.6 L (13.5-18.0) gm/dL Hct 31.3 L (42.0-52.0) % MCH 33.5 H (27-31) pg Immature Gran # (Auto) 0.05 H (0.000-0.0310) K/mm3 Neutrophils % 89.8 H (42-75.0) % Lymphocytes % 3.5 L (20-51) % Neutrophils # 10.2 H (1.3-6.0) K/mm3 Lymphocytes # 0.40 L (1.5-3.5) k/mm3 PT 11.4 H (9.1-10.7) Seconds INR (Anticoag Therapy) 1.16 H (0.92-1.08) INR Plasma Sodium 143 H (130-142) mmol/L BUN 26 H (6-23) mg/dL BUN/Creatinine Ratio 25.7 H (9.0-21.6) Random Glucose 156 H (70-110) mg/dL ALT 16 L (19-67) U/L Albumin 2.5 L (3.4-5.0) gm/dl Urine Protein (NEGATIVE) mg/dL Urine Blood (NEGATIVE) /ul Urine RBC (0-5) /hpf Amorphous Sediment (NONE-FEW) Urine Mucus (NONE) 03/31/19 Range/Units 10:55 WBC (4.0-10.5) K/mm3 RBC (4.7-6.0) M/mm3 Hgb (13.5-18.0) gm/dL Hct (42.0-52.0) % MCH (27-31) pg Immature Gran # (Auto) (0.000-0.0310) K/mm3 Neutrophils % (42-75.0) % Lymphocytes % (20-51) % Neutrophils # (1.3-6.0) K/mm3 Lymphocytes # (1.5-3.5) k/mm3 PT (9.1-10.7) Seconds INR (Anticoag Therapy) (0.92-1.08) INR Plasma Sodium (130-142) mmol/L BUN (6-23) mg/dL BUN/Creatinine Ratio (9.0-21.6) Random Glucose (70-110) mg/dL ALT (19-67) U/L Albumin (3.4-5.0) gm/dl Urine Protein 30 H (NEGATIVE) mg/dL Urine Blood 250 H (NEGATIVE) /ul Urine RBC 10-25 H (0-5) /hpf Amorphous Sediment Moderate - 2+ H (NONE-FEW) Urine Mucus Few - 1+ H (NONE) - EKG/Xray Findings EKG: NSR, atrial fibrillation, atrial flutter EKG read: Reviewed by me - Exam Constitutional: Present: Alert, No distress ENT Exam: Present: hearing grossly normal Respiratory: Present: lungs clear, normal breath sounds, no respiratory distress, no accessory muscle use Cardiovascular/Chest: Present: normal peripheral pulses, no edema, no gallop, no JVD, no murmur, irregularly irregular Abdomen: Present: Normal bowel sounds, soft Extremity: Present: normal inspection, no pedal edema Skin Exam: Present: normal color, warm/dry Neurologic: Present: alert, other - dementia Appearance: Present: appropriate appearance Cauti Physician Documentation - Urinary Catheter Management Urethral (Epperson) Urethral Indwelling: Yes Date of Insertion: 03/28/19 Time of Insertion: 10:30 Assessment/Plan Plan Narrative: Assessment/Plan 88 y/o M admitted for Right hip fracture now s/p right hip cemented monica-arthroplasty POD #5 Fluid overload resolved * Echo reviewed normal, ruled out heart failure A-fib alternating with atrial flutter, rate controlled * Increased Cardizem 180 mg daily Hypoxia, * On 1L NC, SpO2 > 92 % when awake and > 88% when sleeping * Wean off oxygen as tolerated Leukocytosis * trending down Hip fracture s/p right hip cemented monica-arthroplasty POD #5 * C/D/I * Follow as per ortho recommendations FEN: 1/2 NS with KCL @ 50 ml/hr, Regular diet, start with thick liquids and advance diet as tolerated DVT PPX: Lovenox 40mg SC switch to eliquis upon discharge CODE STATUS: DNR/DNI DISPOSITION: - Continue epperson - Await ortho and PT recommendations. - With his age and dementia, no benefit for SUSANA and cardioversion, as long as patient is rate controlled this would be appropriate treatment - Goal are to improve hydration and nutrition status - Gentle hydration with 1/2 ns with KCL since he is hpyernatremic and hypokalmeic, will recheck CMP at 1700 - Problems/Diagnosis (1) Atrial fibrillation with rapid ventricular response Problem: Acute (2) Cardiorenal syndrome with renal failure Problem: Resolved (3) Acute kidney failure Problem: Resolved Qualifiers: Acute renal failure type: unspecified Qualified Code(s): N17.9 - Acute kidney failure, unspecified (4) Metabolic encephalopathy Problem: Resolved (5) Leukocytosis Problem: Acute Qualifiers: Leukocytosis type: leukemoid reaction Qualified Code(s): D72.823 - Leukemoid reaction (6) Hyperglycemia Problem: Acute (7) Hip fracture Problem: Acute Qualifiers: Encounter type: subsequent encounter Fracture type: closed Laterality: right Fracture healing: with routine healing Qualified Code(s): S72.001D - Fracture of unspecified part of neck of right femur, subsequent encounter for closed fracture with routine healing (8) Dementia with behavioral disturbance Problem: Chronic Qualifiers: Dementia type: vascular dementia Qualified Code(s): F01.51 - Vascular dementia with behavioral disturbance
[2019-04-01 08:08] LABS: Hematocrit 31.4 % (42.0-52.0); Hemoglobin 10.5 gm/dL (13.5-18.0); Mean Corpuscular Hemoglobin 33.4 pg (27-31); Mean Corpuscular Hgb Conc 33.4 g/dl (32-36); Mean Platelet Volume 9.7 fl (8-11.3); Neutrophil # 9.9 K/mm3 (1.3-6.0); Neutrophil % 87.8 % (42-75.0); Platelet Count 277 K/mm3 (150-450); Red Blood Count 3.14 M/mm3 (4.7-6.0); Red Cell Distribution Width 12.8 % (11.5-14.0); White Blood Count 11.2 K/mm3 (4.0-10.5)
[2019-04-01 08:18] LABS: Albumin * 2.4 gm/dl (3.4-5.0); Anion Gap 12.4 mmol/L (6.8-13.8); BUN/Creatinine Ratio 27.6 (9.0-21.6); Ca. Corrected For Albumin 9.4 mg/dL (8.4-10.2); Calcium * 8.4 mg/dL (7.9-10.9); Carbon Dioxide 27.8 mmol/L (24-32.6); Potassium 3.2 mmol/L (3.4-4.6); Total Protein 6.6 gm/dL (6.2-8.2)
[2019-04-01] MEDS: ENOXAPARIN SODIUM 40 MG/0.4 ML SYRG SC SCH (10:53)
[2019-04-01] MEDS ORDERED: POTASSIUM CHLORIDE 20 MEQ in 0.5 NORMAL SALINE 1,000 ML IV SCH (11:30)
[2019-04-01] MEDS ORDERED: POTASSIUM CHLORIDE 20 MEQ TABLET.SA PO ONE (12:57)
[2019-04-01] MEDS ORDERED: POTASSIUM CHLORIDE 20 MEQ TABLET.SA ONE (13:59)
--- NOTE | 2019-04-01 14:09 | ECHO ---
This report is available in the EMR
[2019-04-01 17:16] LABS: Albumin * 2.7 gm/dl (3.4-5.0); Anion Gap 15.1 mmol/L (6.8-13.8); BUN/Creatinine Ratio 24.8 (9.0-21.6); Bilirubin, Total 1.1 mg/dL (0.0-1.1); Ca. Corrected For Albumin 9.5 mg/dL (8.4-10.2); Calcium * 8.8 mg/dL (7.9-10.9); Potassium 3.1 mmol/L (3.4-4.6); Total Protein 7.1 gm/dL (6.2-8.2)
[2019-04-01] MEDS ORDERED: DILTIAZEM HCL 90 MG TABLET PO ONE (18:00)
[2019-04-01] MEDS: SENNOSIDES/DOCUSATE SODIUM 1 TAB TABLET PO SCH (20:48)
[2019-04-02] MEDS: ALBUTEROL SULFATE/IPRATROPIUM 3 ML NEBU IH SCH ×6 (02:50→22:01)
[2019-04-02 06:30] LABS: Hematocrit 30.7 % (42.0-52.0); Hemoglobin 10.1 gm/dL (13.5-18.0); Mean Cell Volume 101.3 fl (78-100); Mean Corpuscular Hemoglobin 33.3 pg (27-31); Mean Corpuscular Hgb Conc 32.9 g/dl (32-36); Mean Platelet Volume 9.8 fl (8-11.3); Neutrophil # 8.6 K/mm3 (1.3-6.0); Platelet Count 305 K/mm3 (150-450); Red Blood Count 3.03 M/mm3 (4.7-6.0); Red Cell Distribution Width 12.7 % (11.5-14.0); White Blood Count 10.5 K/mm3 (4.0-10.5)
[2019-04-02 06:32] LABS: Albumin * 2.3 gm/dl (3.4-5.0); Anion Gap 12.5 mmol/L (6.8-13.8); Bilirubin, Total 0.9 mg/dL (0.0-1.1); Ca. Corrected For Albumin 9.4 mg/dL (8.4-10.2); Calcium * 8.4 mg/dL (7.9-10.9); Carbon Dioxide 28.2 mmol/L (24-32.6); Potassium 3.7 mmol/L (3.4-4.6); Total Protein 6.5 gm/dL (6.2-8.2)
--- NOTE | 2019-04-02 09:29 | PN ---
Subjective - Date and Time Seen Date: 04/02/19 Time: 09:23 Subjective Narrative: No acute vents overnight. Patient has been moved from SCU to the floor. Responding to his name. Able to tolerate some PT yesterday. Intake is mildly improving. Rate well controlled, in NSR. No other acute concerns. Objective - Review of Systems Generalized/Overall Review: Reports: Weakness Respiratory: Denies: Cough, Shortness of Breath, Orthopnea Cardiac: Denies: Chest Pain, Edema, Palpitations Abdominal: Denies: Nausea, Vomiting, Abdominal Pain Genitourinary Symptoms: Denies: Hematuria, Dysuria, Oliguria Neurological: Reports: Weakness, Pre-existing Deficit - dementia Skin: Reports: Dryness - Vitals Vitals: Last Vital Signs Temp 37.2 C 04/02/19 06:30 Pulse 78 04/02/19 07:00 Resp 20 04/02/19 06:30 BP 136/59 04/02/19 06:30 Pulse Ox 93 04/02/19 06:30 - Abnormal Lab Findings Abnormal Lab Findings: Abnormal Lab Results 04/01/19 04/02/19 04/02/19 Range/Units 17:00 06:17 06:17 RBC 3.03 L (4.7-6.0) M/mm3 Hgb 10.1 L (13.5-18.0) gm/dL Hct 30.7 L (42.0-52.0) % MCV 101.3 H (78-100) fl MCH 33.3 H (27-31) pg Immature Gran % (Auto) 1.50 H (0.001-0.429) % Immature Gran # (Auto) 0.16 H (0.000-0.0310) K/mm3 Neutrophils % 82.0 H (42-75.0) % Lymphocytes % 6.3 L (20-51) % Neutrophils # 8.6 H (1.3-6.0) K/mm3 Lymphocytes # 0.66 L (1.5-3.5) k/mm3 Sodium 146 H 147 H (132-142) mmol/L Plasma Sodium 147 H 148 H (130-142) mmol/L Potassium 3.1 L (3.4-4.6) mmol/L Chloride 110 H (97-106) mmol/L Anion Gap 15.1 H (6.8-13.8) mmol/L BUN 25 H (6-23) mg/dL BUN/Creatinine Ratio 24.8 H 25.0 H (9.0-21.6) Random Glucose 167 H 148 H (70-110) mg/dL Albumin 2.7 L 2.3 L (3.4-5.0) gm/dl - EKG/Xray Findings EKG: NSR Interpretation: Reviewed by me - Exam Constitutional: Present: Alert, Cooperative, No distress, Elderly ENT Exam: Present: hearing grossly normal Respiratory: Present: lungs clear, normal breath sounds, no respiratory distress, no accessory muscle use, No rales, No wheezing Cardiovascular/Chest: Present: normal peripheral pulses, regular rate, rhythm, no chest tenderness, no edema, no gallop, no JVD, no murmur Abdomen: Present: Normal bowel sounds, soft Extremity: Present: normal inspection, no calf tenderness, slow capillary refill - 3-4 secs Skin Exam: Present: warm/dry Neurologic: Present: alert, other - dementia Appearance: Present: appropriate appearance, impaired recent memory, impaired remote memory Eye contact: Present: good eye contact Cauti Physician Documentation - Urinary Catheter Management Urethral ([place]) Urethral Indwelling: Yes Reason for Continuing Indwelling Catheter: Prolonged immobilization Date of Insertion: 03/28/19 Time of Insertion: 10:30 Date of Removal: 04/02/19 Time of Removal: 10:30 Assessment/Plan Plan Narrative: Assessment/Plan 88 y/o M admitted for Right hip fracture now s/p right hip cemented monica- arthroplasty POD #6 Hip fracture s/p right hip cemented monica-arthroplasty POD #6 * C/D/I * Follow as per ortho recommendations A-fib alternating with atrial flutter, rate controlled * Increased Cardizem 180 mg daily * Continuous telemetry * Will d/c lovenox and start eliquis PO BID in preparation for discharge * Weaned off oxygen Persistent Hypernatremia > 48 hours most likely due to being elderly with dementia and limited fluid intake * No acute changes in Mental Status from baseline * Urine studies pending * Free water deficit is 2.2 L * Pending urine studies will resume IV D5W at 1.35mL/kg/hr * D/C'd docussate sodium * No added salt to diet * Repeat CMP at 1700 Macrocytic anemia * B12 and Folate pending * Pending results will replete accordingly FEN: Mechanical soft diet , no added salt DVT PPX: Eliquis CODE STATUS: DNR/DNI DISPOSITION: - D/C epperson, start adult diapers - Await PT recommendations. - Goal are to improve hydration and nutrition status - Pending urine studies, will consider fluid resuscitation with IV D5W to replace free water deficit of 2.2L - Awaiting placement - Problems/Diagnosis (1) Hip fracture Problem: Acute Qualifiers: Encounter type: subsequent encounter Fracture type: closed Laterality: right Fracture healing: with routine healing Qualified Code(s): S72.001D - Fracture of unspecified part of neck of right femur, subsequent encounter for closed fracture with routine healing (2) Atrial fibrillation with rapid ventricular response Problem: Acute (3) Dehydration with hypernatremia Problem: Acute (4) Macrocytic anemia Problem: Acute (5) Hyperglycemia Problem: Acute (6) Cardiorenal syndrome with renal failure Problem: Resolved (7) Acute kidney failure Problem: Resolved Qualifiers: Acute renal failure type: unspecified Qualified Code(s): N17.9 - Acute kidney failure, unspecified (8) Metabolic encephalopathy Problem: Resolved (9) Leukocytosis Problem: Resolved Qualifiers: Leukocytosis type: leukemoid reaction Qualified Code(s): D72.823 - Leukemoid reaction (10) Dementia with behavioral disturbance Problem: Chronic Qualifiers: Dementia type: vascular dementia Qualified Code(s): F01.51 - Vascular dementia with behavioral disturbance
[2019-04-02 10:25] LABS: Folate 5.4 ng/mL (8.6-58.9)
--- NOTE | 2019-04-02 11:20 | PN ---
Subjective - Date and Time Seen Date: 04/02/19 Time: 11:19 Subjective Narrative: Subjective: He is up in the chair. He has been able to do slightly more with therapy but still limited. He is alert and communicating. He is following commands. Physical exam: Alert Right lower extremity: Palpable dorsalis pedis pulse. Dressings clean and dry. Moving toes. Calf and thigh are soft and nontender. Assessment: Postop day 5 status post right hip monica-arthroplasty. Plan: Continue with physical and occupational therapy weightbearing as tolerated. Continue with anticoagulation - will need 10 days total lovenox then daily aspirin unless needs any additional anticoagulation for medical issues. Continue bowel regimen. Will need 6 weeks with walker or assitive device to protect joint while ambulating during the recovery process. From and orthopedic standpoint OK for NH when medically stable. Continue PT, WBAT anterior hip precautions. Keep wound covered and dry, avoid contamination with urine. Follow-up 2-3 weeks. Ice to hip, alexia hose to right leg. Objective - Vitals Vitals: Last Vital Signs Temp 36.5 C 04/02/19 11:11 Pulse 80 04/02/19 11:11 Resp 18 04/02/19 11:11 BP 146/71 04/02/19 11:11 Pulse Ox 96 04/02/19 11:11 - Abnormal Lab Findings Abnormal Lab Findings: Abnormal Lab Results 04/01/19 04/02/19 04/02/19 Range/Units 17:00 06:17 06:17 RBC 3.03 L (4.7-6.0) M/mm3 Hgb 10.1 L (13.5-18.0) gm/dL Hct 30.7 L (42.0-52.0) % MCV 101.3 H (78-100) fl MCH 33.3 H (27-31) pg Immature Gran % (Auto) 1.50 H (0.001-0.429) % Immature Gran # (Auto) 0.16 H (0.000-0.0310) K/mm3 Neutrophils % 82.0 H (42-75.0) % Lymphocytes % 6.3 L (20-51) % Neutrophils # 8.6 H (1.3-6.0) K/mm3 Lymphocytes # 0.66 L (1.5-3.5) k/mm3 Sodium 146 H 147 H (132-142) mmol/L Plasma Sodium 147 H 148 H (130-142) mmol/L Potassium 3.1 L (3.4-4.6) mmol/L Chloride 110 H (97-106) mmol/L Anion Gap 15.1 H (6.8-13.8) mmol/L BUN 25 H (6-23) mg/dL BUN/Creatinine Ratio 24.8 H 25.0 H (9.0-21.6) Random Glucose 167 H 148 H (70-110) mg/dL Albumin 2.7 L 2.3 L (3.4-5.0) gm/dl Folate (8.6-58.9) ng/mL 04/02/19 Range/Units 06:17 RBC (4.7-6.0) M/mm3 Hgb (13.5-18.0) gm/dL Hct (42.0-52.0) % MCV (78-100) fl MCH (27-31) pg Immature Gran % (Auto) (0.001-0.429) % Immature Gran # (Auto) (0.000-0.0310) K/mm3 Neutrophils % (42-75.0) % Lymphocytes % (20-51) % Neutrophils # (1.3-6.0) K/mm3 Lymphocytes # (1.5-3.5) k/mm3 Sodium (132-142) mmol/L Plasma Sodium (130-142) mmol/L Potassium (3.4-4.6) mmol/L Chloride (97-106) mmol/L Anion Gap (6.8-13.8) mmol/L BUN (6-23) mg/dL BUN/Creatinine Ratio (9.0-21.6) Random Glucose (70-110) mg/dL Albumin (3.4-5.0) gm/dl Folate 5.4 L (8.6-58.9) ng/mL Cauti Physician Documentation - Urinary Catheter Management Urethral (Hall) Urethral Indwelling: Yes Date of Insertion: 03/28/19 Time of Insertion: 10:30 Date of Removal: 04/02/19 Time of Removal: 11:15 Assessment/Plan - Problems/Diagnosis (1) Hip fracture Problem: Acute Qualifiers: Encounter type: subsequent encounter Fracture type: closed Laterality: right Fracture healing: with routine healing Qualified Code(s): S72.001D - Fracture of unspecified part of neck of right femur, subsequent encounter for closed fracture with routine healing (2) Status post hip hemiarthroplasty Problem: Acute
[2019-04-02] MEDS: DILTIAZEM HCL 180 MG CAP.SR.24H PO SCH (12:06)
[2019-04-02 18:20] LABS: Albumin * 2.6 gm/dl (3.4-5.0); Anion Gap 13.8 mmol/L (6.8-13.8); BUN/Creatinine Ratio 25.6 (9.0-21.6); Bilirubin, Total 0.8 mg/dL (0.0-1.1); Ca. Corrected For Albumin 9.5 mg/dL (8.4-10.2); Calcium * 8.7 mg/dL (7.9-10.9); Carbon Dioxide 28.4 mmol/L (24-32.6); Potassium 3.2 mmol/L (3.4-4.6); Total Protein 7.2 gm/dL (6.2-8.2)
[2019-04-02] MEDS: APIXABAN 5 MG TABLET PO SCH (20:57)
[2019-04-02] MEDS: traMADol HCL 50 MG TABLET PO PRN (21:47)
[2019-04-03] MEDS: ALBUTEROL SULFATE/IPRATROPIUM 3 ML NEBU IH SCH ×6 (02:06→22:09)
[2019-04-03 06:44] LABS: Hematocrit 32.1 % (42.0-52.0); Hemoglobin 10.3 gm/dL (13.5-18.0); Mean Cell Volume 101.6 fl (78-100); Mean Corpuscular Hemoglobin 32.6 pg (27-31); Mean Corpuscular Hgb Conc 32.1 g/dl (32-36); Mean Platelet Volume 9.8 fl (8-11.3); Neutrophil # 7.6 K/mm3 (1.3-6.0); Neutrophil % 76.3 % (42-75.0); Platelet Count 343 K/mm3 (150-450); Red Blood Count 3.16 M/mm3 (4.7-6.0); Red Cell Distribution Width 12.7 % (11.5-14.0)
[2019-04-03 06:57] LABS: Albumin * 2.3 gm/dl (3.4-5.0); Anion Gap 11.4 mmol/L (6.8-13.8); BUN/Creatinine Ratio 23.4 (9.0-21.6); Bilirubin, Total 0.7 mg/dL (0.0-1.1); Ca. Corrected For Albumin 9.1 mg/dL (8.4-10.2); Calcium * 8.1 mg/dL (7.9-10.9); Carbon Dioxide 29.3 mmol/L (24-32.6); Potassium 3.7 mmol/L (3.4-4.6); Total Protein 6.5 gm/dL (6.2-8.2)
--- NOTE | 2019-04-03 08:09 | PN ---
Subjective - Date and Time Seen Date: 04/03/19 Time: 08:08 Subjective Narrative: No acute events overnight. Went in to afib rvr late morning. Bolused with cardizem 20 mg followed by 25 mg IV, then drip started. Objective - Review of Systems Generalized/Overall Review: Reports: Weakness Respiratory: Denies: Cough, Shortness of Breath Cardiac: Denies: Chest Pain, Edema, Palpitations Abdominal: Denies: Nausea, Vomiting, Abdominal Pain Neurological: Reports: Weakness Skin: Reports: Dryness - Vitals Vitals: Last Vital Signs Temp 36.6 C 04/03/19 06:46 Pulse 89 04/03/19 06:46 Resp 16 04/03/19 06:46 BP 130/62 04/03/19 06:46 Pulse Ox 96 04/03/19 06:46 - Abnormal Lab Findings Abnormal Lab Findings: Abnormal Lab Results 04/02/19 04/02/19 04/03/19 Range/Units 06:17 17:20 06:20 RBC 3.16 L (4.7-6.0) M/mm3 Hgb 10.3 L (13.5-18.0) gm/dL Hct 32.1 L (42.0-52.0) % MCV 101.6 H (78-100) fl MCH 32.6 H (27-31) pg Immature Gran % (Auto) 4.30 H (0.001-0.429) % Immature Gran # (Auto) 0.43 H (0.000-0.0310) K/mm3 Neutrophils % 76.3 H (42-75.0) % Lymphocytes % 7.3 L (20-51) % Monocytes % 9.1 H (0.0-9) % Neutrophils # 7.6 H (1.3-6.0) K/mm3 Lymphocytes # 0.73 L (1.5-3.5) k/mm3 Sodium 147 H (132-142) mmol/L Plasma Sodium 147 H (130-142) mmol/L Potassium 3.2 L (3.4-4.6) mmol/L Chloride 108 H (97-106) mmol/L BUN/Creatinine Ratio 25.6 H (9.0-21.6) Random Glucose 128 H (70-110) mg/dL AST 55 H (0-48) U/L Albumin 2.6 L (3.4-5.0) gm/dl Folate 5.4 L (8.6-58.9) ng/mL 04/03/19 Range/Units 06:20 RBC (4.7-6.0) M/mm3 Hgb (13.5-18.0) gm/dL Hct (42.0-52.0) % MCV (78-100) fl MCH (27-31) pg Immature Gran % (Auto) (0.001-0.429) % Immature Gran # (Auto) (0.000-0.0310) K/mm3 Neutrophils % (42-75.0) % Lymphocytes % (20-51) % Monocytes % (0.0-9) % Neutrophils # (1.3-6.0) K/mm3 Lymphocytes # (1.5-3.5) k/mm3 Sodium 146 H (132-142) mmol/L Plasma Sodium 147 H (130-142) mmol/L Potassium (3.4-4.6) mmol/L Chloride 109 H (97-106) mmol/L BUN/Creatinine Ratio 23.4 H (9.0-21.6) Random Glucose 147 H (70-110) mg/dL AST 54 H (0-48) U/L Albumin 2.3 L (3.4-5.0) gm/dl Folate (8.6-58.9) ng/mL - EKG/Xray Findings EKG: other - a-fib rvr EKG read: Reviewed by me - Exam Constitutional: Present: Alert, No distress ENT Exam: Present: hearing grossly normal Respiratory: Present: lungs clear, normal breath sounds, no respiratory distress Cardiovascular/Chest: Present: normal peripheral pulses, no edema, no gallop, no JVD, no murmur, irregularly irregular Abdomen: Present: Normal bowel sounds, soft Extremity: Present: normal range of motion, normal inspection, no pedal edema, no calf tenderness Skin Exam: Present: warm/dry Neurologic: Present: alert Cauti Physician Documentation - Urinary Catheter Management Urethral ([place]) Urethral Indwelling: Yes Date of Insertion: 03/28/19 Time of Insertion: 10:30 Date of Removal: 04/02/19 Time of Removal: 11:15 Assessment/Plan Plan Narrative: Assessment/Plan 88 y/o M admitted for Right hip fracture now s/p right hip cemented monica-arthr oplasty POD #7 Hip fracture s/p right hip cemented monica-arthroplasty POD #7 * C/D/I * Follow as per ortho and PT recommendations A-fib alternating with atrial flutter, rate controlled * On cardizem drip * Bridge with cardizem 225 mg daily Persistent Hypernatremia > 48 hours most likely due to being elderly with dementia and limited fluid intake * Sodium levels improving * will continue to monitor * no acute mental changes Macrocytic anemia * Folate deficient * Folate supplement daily FEN: Mechanical soft diet , no added salt DVT PPX: Eliquis CODE STATUS: DNR/DNI DISPOSITION: - Once patient is rate controlled will return to floor - continue PT - Awaiting placement - Problems/Diagnosis (1) Hip fracture Problem: Acute Qualifiers: Encounter type: subsequent encounter Fracture type: closed Laterality: right Fracture healing: with routine healing Qualified Code(s): S72.001D - Fracture of unspecified part of neck of right femur, subsequent encounter for closed fracture with routine healing (2) Atrial fibrillation with rapid ventricular response Problem: Acute (3) Dehydration with hypernatremia Problem: Acute (4) Macrocytic anemia Problem: Acute (5) Hyperglycemia Problem: Acute (6) Cardiorenal syndrome with renal failure Problem: Resolved (7) Acute kidney failure Problem: Resolved Qualifiers: Acute renal failure type: unspecified Qualified Code(s): N17.9 - Acute kidney failure, unspecified (8) Metabolic encephalopathy Problem: Resolved (9) Leukocytosis Problem: Resolved Qualifiers: Leukocytosis type: leukemoid reaction Qualified Code(s): D72.823 - Leukemoid reaction (10) Dementia with behavioral disturbance Problem: Chronic Qualifiers: Dementia type: vascular dementia Qualified Code(s): F01.51 - Vascular dementia with behavioral disturbance
[2019-04-03] MEDS ORDERED: DILTIAZEM HCL 5 MG/ML VIAL IV ONE ×2 (09:30→11:10)
[2019-04-03] MEDS: APIXABAN 5 MG TABLET PO SCH ×2 (10:19→20:06)
[2019-04-03] MEDS: DILTIAZEM HCL 180 MG CAP.SR.24H PO SCH (10:19)
[2019-04-03] MEDS: FOLIC ACID 1 MG TABLET PO SCH (10:19)
[2019-04-03] MEDS: DILTIAZEM HCL 125 MG in DEXTROSE 5 % IN WATER 100 ML IV PRN ×2 (12:32)
[2019-04-03] MEDS ORDERED: DILTIAZEM HCL 240 MG CAP.SR.24H PO SCH (13:30)
[2019-04-03] MEDS: traMADol HCL 50 MG TABLET PO PRN ×2 (14:46→20:06)
[2019-04-04] MEDS: ALBUTEROL SULFATE/IPRATROPIUM 3 ML NEBU IH SCH ×2 (02:01→06:09)
[2019-04-04 06:20] LABS: Hematocrit 35.5 % (42.0-52.0); Hemoglobin 11.3 gm/dL (13.5-18.0); Mean Cell Volume 103.2 fl (78-100); Mean Corpuscular Hemoglobin 32.8 pg (27-31); Mean Corpuscular Hgb Conc 31.8 g/dl (32-36); Mean Platelet Volume 9.1 fl (8-11.3); Neutrophil % 76.1 % (42-75.0); Platelet Count 348 K/mm3 (150-450); Red Blood Count 3.44 M/mm3 (4.7-6.0); White Blood Count 10.5 K/mm3 (4.0-10.5)
[2019-04-04 06:35] LABS: Albumin * 2.4 gm/dl (3.4-5.0); Anion Gap 8.9 mmol/L (6.8-13.8); BUN/Creatinine Ratio 30.5 (9.0-21.6); Calcium * 8.2 mg/dL (7.9-10.9); Carbon Dioxide 32.6 mmol/L (24-32.6); Potassium 3.5 mmol/L (3.4-4.6); Total Protein 6.7 gm/dL (6.2-8.2)
[2019-04-04 06:36] LABS: Bilirubin, Total 0.6 mg/dL (0.0-1.1); Ca. Corrected For Albumin 9.2 mg/dL (8.4-10.2)
[2019-04-04] MEDS: traMADol HCL 50 MG TABLET PO PRN (08:41)
[2019-04-04] MEDS: APIXABAN 5 MG TABLET PO SCH ×2 (08:42→20:47)
[2019-04-04] MEDS: FOLIC ACID 1 MG TABLET PO SCH (08:42)
[2019-04-04] MEDS: DILTIAZEM HCL 240 MG CAP.SR.24H PO SCH (08:42)
--- NOTE | 2019-04-04 09:01 | PN ---
Subjective - Date and Time Seen Date: 04/04/19 Time: 08:04 Subjective Narrative: No acute events overnight. Now in NSR Objective - Review of Systems Generalized/Overall Review: Reports: Weakness Respiratory: Denies: Cough, Shortness of Breath, Orthopnea Cardiac: Denies: Chest Pain, Edema, Palpitations Abdominal: Denies: Nausea, Abdominal Pain Genitourinary Symptoms: Reports: Incontinent Musculoskeletal Complaints: Denies: Joint Pain, Back Pain, Joint Swelling, Muscle Pain Neurological: Reports: Weakness, Pre-existing Deficit - Dementia Skin: Reports: Dryness - Vitals Vitals: Last Vital Signs Temp 36.8 C 04/03/19 14:00 Pulse 61 04/04/19 06:59 Resp 16 04/04/19 06:59 BP 125/49 04/04/19 06:59 Pulse Ox 98 04/04/19 06:59 - Abnormal Lab Findings Abnormal Lab Findings: Abnormal Lab Results 04/04/19 04/04/19 Range/Units 06:13 06:13 RBC 3.44 L (4.7-6.0) M/mm3 Hgb 11.3 L (13.5-18.0) gm/dL Hct 35.5 L (42.0-52.0) % MCV 103.2 H (78-100) fl MCH 32.8 H (27-31) pg MCHC 31.8 L (32-36) g/dl Immature Gran % (Auto) 4.00 H (0.001-0.429) % Immature Gran # (Auto) 0.42 H (0.000-0.0310) K/mm3 Neutrophils % 76.1 H (42-75.0) % Lymphocytes % 8.4 L (20-51) % Neutrophils # 8.0 H (1.3-6.0) K/mm3 Lymphocytes # 0.89 L (1.5-3.5) k/mm3 Sodium 148 H (132-142) mmol/L Plasma Sodium 149 H (130-142) mmol/L Chloride 110 H (97-106) mmol/L BUN 25 H (6-23) mg/dL BUN/Creatinine Ratio 30.5 H (9.0-21.6) Random Glucose 155 H (70-110) mg/dL AST 62 H (0-48) U/L ALT 89 H (19-67) U/L Albumin 2.4 L (3.4-5.0) gm/dl - EKG/Xray Findings EKG: NSR EKG read: Reviewed by me - Exam Constitutional: Present: Alert, Cooperative ENT Exam: Present: hearing grossly normal Neck: Present: non-tender, full range of motion, supple Respiratory: Present: chest non-tender, lungs clear, normal breath sounds, no respiratory distress, no accessory muscle use, No rales, No wheezing Cardiovascular/Chest: Present: normal peripheral pulses, regular rate, rhythm, no edema, no gallop, no JVD, no murmur Abdomen: Present: Normal bowel sounds, soft Extremity: Present: normal range of motion, normal inspection, no pedal edema, no calf tenderness, normal capillary refill Skin Exam: Present: normal color, warm/dry Neurologic: Present: alert, other Cauti Physician Documentation - Urinary Catheter Management Urethral (Hall) Urethral Indwelling: Yes Date of Insertion: 03/28/19 Time of Insertion: 10:30 Date of Removal: 04/02/19 Time of Removal: 11:15 Assessment/Plan Plan Narrative: Assessment/Plan 88 y/o M admitted for Right hip fracture now s/p right hip cemented monica- arthroplasty POD #8 Hip fracture s/p right hip cemented monica-arthroplasty POD #8 * C/D/I * Follow as per ortho and PT recommendations A-fib * Cardizem 225 mg PO Q24H FEN: Mechanical soft diet , no added salt DVT PPX: Eliquis CODE STATUS: DNR/DNI DISPOSITION: - continue PT - Awaiting placement - Problems/Diagnosis (1) Hip fracture Problem: Acute Qualifiers: Encounter type: subsequent encounter Fracture type: closed Laterality: right Fracture healing: with routine healing Qualified Code(s): S72.001D - Fracture of unspecified part of neck of right femur, subsequent encounter for closed fracture with routine healing (2) Atrial fibrillation with rapid ventricular response Problem: Acute (3) Dehydration with hypernatremia Problem: Acute (4) Macrocytic anemia Problem: Acute (5) Hyperglycemia Problem: Acute (6) Cardiorenal syndrome with renal failure Problem: Resolved (7) Acute kidney failure Problem: Resolved Qualifiers: Acute renal failure type: unspecified Qualified Code(s): N17.9 - Acute kidney failure, unspecified (8) Metabolic encephalopathy Problem: Resolved (9) Leukocytosis Problem: Resolved Qualifiers: Leukocytosis type: leukemoid reaction Qualified Code(s): D72.823 - Leukemoid reaction (10) Dementia with behavioral disturbance Problem: Chronic Qualifiers: Dementia type: vascular dementia Qualified Code(s): F01.51 - Vascular dementia with behavioral disturbance
[2019-04-04] MEDS ORDERED: ALBUTEROL SULFATE/IPRATROPIUM 3 ML NEBU IH PRN (09:38)
--- NOTE | 2019-04-05 08:00 | PN ---
Subjective - Date and Time Seen Date: 04/05/19 Time: 07:30 Subjective Narrative: He does not respond to questions, but nursing reports he is at his baseline. No new concerns. Objective - Review of Systems Generalized/Overall Review: Reports: No Symptoms Reported - Unable to contribute to ROS - Vitals Vitals: Last Vital Signs Temp 36.4 C 04/05/19 06:43 Pulse 62 04/05/19 06:43 Resp 16 04/05/19 06:43 BP 124/49 04/05/19 06:43 Pulse Ox 91 L 04/05/19 06:43 - Exam Constitutional: Present: Elderly Respiratory: Present: normal breath sounds, no respiratory distress Cardiovascular/Chest: Present: regular rate, rhythm Abdomen: Present: soft, nontender Extremity: Absent: lower extremity edema Cauti Physician Documentation - Urinary Catheter Management Urethral (Hall) Urethral Indwelling: No Date of Insertion: 03/28/19 Time of Insertion: 10:30 Date of Removal: 04/02/19 Time of Removal: 11:15 Assessment/Plan - Problems/Diagnosis (1) Hip fracture Problem: Acute Qualifiers: Encounter type: subsequent encounter Fracture type: closed Laterality: right Fracture healing: with routine healing Qualified Code(s): S72.001D - Fracture of unspecified part of neck of right femur, subsequent encounter for closed fracture with routine healing Narrative: POD #8 right hip cemented monica-arthroplasty of closed right hip displaced femoral neck fracture, awaiting placement. Pain appears to be controlled on current regimen, no changes needed. Continue post op care, PT per ortho instructions. (2) Dementia with behavioral disturbance Problem: Chronic Qualifiers: Dementia type: vascular dementia Qualified Code(s): F01.51 - Vascular dementia with behavioral disturbance (3) Atrial fibrillation with rapid ventricular response Problem: Resolved Narrative: He is currently on 240 mg cardizem, with heart rate in the 60's. HR regular on exam. Will need to decrease dose if he has any further decrease in his rate. Continue 5 mg apixaban. Recommend discussions with family regarding risks vs benefits of continued anticoagulant after DC.
[2019-04-05] MEDS: FOLIC ACID 1 MG TABLET PO SCH (08:59)
[2019-04-05] MEDS: APIXABAN 5 MG TABLET PO SCH ×2 (08:59→22:56)
[2019-04-05] MEDS: DILTIAZEM HCL 240 MG CAP.SR.24H PO SCH (08:59)
[2019-04-05] MEDS: traMADol HCL 50 MG TABLET PO PRN (21:50)
[2019-04-06] MEDS: FOLIC ACID 1 MG TABLET PO SCH (08:57)
[2019-04-06] MEDS: APIXABAN 5 MG TABLET PO SCH ×2 (08:57→20:25)
[2019-04-06] MEDS: DILTIAZEM HCL 240 MG CAP.SR.24H PO SCH (08:57)
--- NOTE | 2019-04-06 09:31 | PN ---
Subjective - Date and Time Seen Date: 04/06/19 Time: 09:22 Subjective Narrative: Nursing reports he has been fidgety. He has required the Kurt to be transferred last night and today. He is eating better this morning. No other new concerns. Objective - Review of Systems Generalized/Overall Review: Reports: No Symptoms Reported - Unable to obtain review of systems due to mentation - Vitals Vitals: Last Vital Signs Temp 36.1 C 04/06/19 07:48 Pulse 66 04/06/19 08:57 Resp 18 04/06/19 07:48 BP 127/50 04/06/19 08:57 Pulse Ox 95 04/06/19 07:48 - Exam Constitutional: Present: No distress, Elderly Respiratory: Present: normal breath sounds, no respiratory distress Cardiovascular/Chest: Present: regular rate, rhythm Abdomen: Present: soft Extremity: Absent: lower extremity edema Thoughts: Present: other - does not interact or respond to questions Cauti Physician Documentation - Urinary Catheter Management Urethral (Hall) Urethral Indwelling: No Date of Insertion: 03/28/19 Time of Insertion: 10:30 Date of Removal: 04/02/19 Time of Removal: 11:15 Assessment/Plan - Problems/Diagnosis (1) Hip fracture Problem: Acute Qualifiers: Encounter type: subsequent encounter Fracture type: closed Laterality: right Fracture healing: with routine healing Qualified Code(s): S72.001D - Fracture of unspecified part of neck of right femur, subsequent encounter for closed fracture with routine healing Narrative: POD #9 right hip cemented monica-arthroplasty of closed right hip displaced femoral neck fracture, awaiting placement. Pain appears to be controlled with tramadol, no changes needed. Continue post op care per ortho instructions. He was not able to participate in PT. (2) Dementia with behavioral disturbance Problem: Chronic Qualifiers: Dementia type: vascular dementia Qualified Code(s): F01.51 - Vascular dementia with behavioral disturbance (3) Atrial fibrillation with rapid ventricular response Problem: Resolved
[2019-04-06] MEDS: traMADol HCL 50 MG TABLET PO PRN ×2 (13:04→20:25)
[2019-04-07] MEDS: FOLIC ACID 1 MG TABLET PO SCH (08:47)
[2019-04-07] MEDS: APIXABAN 5 MG TABLET PO SCH ×2 (08:47→21:09)
[2019-04-07] MEDS: DILTIAZEM HCL 240 MG CAP.SR.24H PO SCH (08:47)
--- NOTE | 2019-04-07 12:56 | PN ---
Subjective - Date and Time Seen Date: 04/07/19 Time: 12:54 Subjective Narrative: some behavioral disturbances overnight and during the weekend, however patients intake has improved. resting comfortably. Objective - Review of Systems Generalized/Overall Review: Reports: Weakness Respiratory: Denies: Cough, Shortness of Breath Cardiac: Denies: Chest Pain, Edema Abdominal: Denies: Abdominal Pain Genitourinary Symptoms: Reports: Incontinent Musculoskeletal Complaints: Denies: Joint Pain, Back Pain, Joint Swelling Neurological: Reports: Weakness, Pre-existing Deficit - dementia Skin: Reports: Dryness - Vitals Vitals: Last Vital Signs Temp 37.2 C 04/07/19 10:05 Pulse 71 04/07/19 10:05 Resp 16 04/07/19 10:05 BP 119/53 04/07/19 10:05 Pulse Ox 96 04/07/19 10:05 - Exam Constitutional: Present: Alert, No distress, Elderly, Thin and frail ENT Exam: Present: hearing grossly normal Neck: Present: full range of motion Respiratory: Present: lungs clear, normal breath sounds, no respiratory distress, no accessory muscle use Cardiovascular/Chest: Present: normal peripheral pulses, regular rate, rhythm, no edema, no gallop, no JVD, no murmur Abdomen: Present: Normal bowel sounds, soft Extremity: Present: normal inspection, no pedal edema, no calf tenderness, normal capillary refill Skin Exam: Present: warm/dry Appearance: Present: impaired recent memory, impaired remote memory Eye contact: Present: uncooperative Thoughts: Present: other - dementia with behavioral disturbances Cauti Physician Documentation - Urinary Catheter Management Urethral (Hall) Urethral Indwelling: No Date of Insertion: 03/28/19 Time of Insertion: 10:30 Date of Removal: 04/02/19 Time of Removal: 11:15 Assessment/Plan Plan Narrative: Assessment/Plan 88 y/o M admitted for Right hip fracture now s/p right hip cemented monica- arthroplasty POD #11 Hip fracture s/p right hip cemented monica-arthroplasty POD #11 * C/D/I * Follow as per ortho and PT recommendations * pain appears well controlled with tramadol A-fib * Cardizem 225 mg PO Q24H FEN: Mechanical soft diet , no added salt DVT PPX: Eliquis CODE STATUS: DNR/DNI DISPOSITION: - Continue PT as tolerated - Awaiting placement - Problems/Diagnosis (1) Hip fracture Problem: Acute Qualifiers: Encounter type: subsequent encounter Fracture type: closed Laterality: right Fracture healing: with routine healing Qualified Code(s): S72.001D - Fracture of unspecified part of neck of right femur, subsequent encounter for closed fracture with routine healing (2) Atrial fibrillation with rapid ventricular response Problem: Resolved (3) Dehydration with hypernatremia Problem: Acute (4) Macrocytic anemia Problem: Acute (5) Hyperglycemia Problem: Acute (6) Cardiorenal syndrome with renal failure Problem: Resolved (7) Acute kidney failure Problem: Resolved Qualifiers: Acute renal failure type: unspecified Qualified Code(s): N17.9 - Acute kidney failure, unspecified (8) Metabolic encephalopathy Problem: Resolved (9) Leukocytosis Problem: Resolved Qualifiers: Leukocytosis type: leukemoid reaction Qualified Code(s): D72.823 - Leukemoid reaction (10) Dementia with behavioral disturbance Problem: Chronic Qualifiers: Dementia type: vascular dementia Qualified Code(s): F01.51 - Vascular dementia with behavioral disturbance
[2019-04-07] MEDS: traMADol HCL 50 MG TABLET PO PRN ×2 (13:14→19:19)
--- NOTE | 2019-04-08 09:10 | PN ---
Subjective - Date and Time Seen Date: 04/08/19 Time: 09:09 Subjective Narrative: no acute events overnight. Pain well controlled. Intake improved. Output at baseline. Objective - Review of Systems Generalized/Overall Review: Reports: Weakness Respiratory: Denies: Cough, Shortness of Breath, Orthopnea Cardiac: Denies: Chest Pain, Edema Abdominal: Denies: Abdominal Pain Genitourinary Symptoms: Reports: Incontinent Musculoskeletal Complaints: Denies: Joint Pain, Back Pain Neurological: Reports: Weakness, Pre-existing Deficit - dementia Skin: Denies: Dryness - Vitals Vitals: Last Vital Signs Temp 36.4 C 04/08/19 07:00 Pulse 62 04/08/19 07:00 Resp 20 04/08/19 07:00 BP 117/50 04/08/19 07:00 Pulse Ox 93 04/08/19 07:00 - Exam Constitutional: Present: Alert, No distress, Elderly ENT Exam: Present: hearing grossly normal Neck: Present: non-tender, full range of motion, supple Respiratory: Present: chest non-tender, lungs clear, normal breath sounds, no respiratory distress, no accessory muscle use Cardiovascular/Chest: Present: normal peripheral pulses, regular rate, rhythm, no chest tenderness, no edema, no gallop, no JVD, no murmur Abdomen: Present: Normal bowel sounds, soft, nontender Extremity: Present: non-tender, normal inspection, no pedal edema, no calf tenderness, normal capillary refill. Absent: normal range of motion - unable to assess ROM Skin Exam: Present: normal color, warm/dry Neurologic: Present: alert, disoriented x 3 - due to dementia Appearance: Present: impaired recent memory, impaired remote memory Eye contact: Present: other - intermittent behavioral disturbances Thoughts: Present: other - dementia Cauti Physician Documentation - Urinary Catheter Management Urethral (Hall) Urethral Indwelling: No Date of Insertion: 03/28/19 Time of Insertion: 10:30 Date of Removal: 04/02/19 Time of Removal: 11:15 Assessment/Plan Plan Narrative: Assessment/Plan 88 y/o M admitted for Right hip fracture now s/p right hip cemented monica- arthroplasty POD #12 Hip fracture s/p right hip cemented monica-arthroplasty POD #12 * C/D/I * Follow as per ortho and PT recommendations * pain well controlled with Tramadol A-fib * Cardizem 225 mg PO Q24H FEN: Mechanical soft diet , no added salt DVT PPX: Eliquis CODE STATUS: DNR/DNI DISPOSITION: - Continue PT as tolerated - Awaiting placement - Problems/Diagnosis (1) Hip fracture Problem: Acute Qualifiers: Encounter type: subsequent encounter Fracture type: closed Laterality: right Fracture healing: with routine healing Qualified Code(s): S72.001D - Fracture of unspecified part of neck of right femur, subsequent encounter for closed fracture with routine healing (2) Dementia with behavioral disturbance Problem: Chronic Qualifiers: Dementia type: vascular dementia Qualified Code(s): F01.51 - Vascular dementia with behavioral disturbance (3) Atrial fibrillation with rapid ventricular response Problem: Resolved (4) Dehydration with hypernatremia Problem: Resolved (5) Macrocytic anemia Problem: Chronic (6) Hyperglycemia Problem: Resolved (7) Cardiorenal syndrome with renal failure Problem: Resolved (8) Acute kidney failure Problem: Resolved Qualifiers: Acute renal failure type: unspecified Qualified Code(s): N17.9 - Acute kidney failure, unspecified (9) Metabolic encephalopathy Problem: Resolved (10) Leukocytosis Problem: Resolved Qualifiers: Leukocytosis type: leukemoid reaction Qualified Code(s): D72.823 - Leukemoid reaction
[2019-04-08] MEDS: DILTIAZEM HCL 240 MG CAP.SR.24H PO SCH (09:35)
[2019-04-08] MEDS: FOLIC ACID 1 MG TABLET PO SCH (09:35)
[2019-04-08] MEDS: APIXABAN 5 MG TABLET PO SCH ×2 (09:36→22:12)
[2019-04-08] MEDS: traMADol HCL 50 MG TABLET PO PRN ×2 (11:27→22:12)
[2019-04-08] MEDS: MAGNESIUM HYDROXIDE 30 ML UDC PO PRN (15:27)
[2019-04-09] MEDS: FOLIC ACID 1 MG TABLET PO SCH (08:38)
[2019-04-09] MEDS: traMADol HCL 50 MG TABLET PO PRN ×2 (08:38→22:35)
[2019-04-09] MEDS: DILTIAZEM HCL 240 MG CAP.SR.24H PO SCH (08:38)
[2019-04-09] MEDS: APIXABAN 5 MG TABLET PO SCH ×2 (08:38→22:35)
[2019-04-09] MEDS: MAGNESIUM HYDROXIDE 30 ML UDC PO PRN (08:42)
--- NOTE | 2019-04-09 11:22 | PN ---
Subjective - Date and Time Seen Date: 04/09/19 Time: 11:21 Subjective Narrative: Subjective: He is up in the chair. Arousable - follows some commands. He is alert and communicating. Physical exam: Alert Right lower extremity: Palpable dorsalis pedis pulse. Dressings clean and dry. Moving toes. Calf and thigh are soft and nontender. Assessment: status post right hip monica-arthroplasty. Plan: Continue with physical and occupational therapy weightbearing as tolerated. Continue with anticoagulation - will need 10 days total lovenox then daily aspirin unless needs any additional anticoagulation for medical issues. Continue bowel regimen. Will need 6 weeks with walker or assitive device to protect joint while ambulating during the recovery process. From and orthopedic standpoint OK for NH when medically stable. Continue PT, WBAT anterior hip pre cautions. Keep wound covered and dry, avoid contamination with urine. Follow- up 1-2 weeks. Ice to hip, alexia hose to right leg. Objective - Vitals Vitals: Last Vital Signs Temp 36.7 C 04/09/19 10:00 Pulse 74 04/09/19 10:00 Resp 16 04/09/19 10:00 BP 127/58 04/09/19 10:00 Pulse Ox 98 04/09/19 10:00 Cauti Physician Documentation - Urinary Catheter Management Urethral (Hall) Urethral Indwelling: No Date of Insertion: 03/28/19 Time of Insertion: 10:30 Date of Removal: 04/02/19 Time of Removal: 11:15 Assessment/Plan - Problems/Diagnosis (1) Hip fracture Problem: Acute Qualifiers: Encounter type: subsequent encounter Fracture type: closed Laterality: right Fracture healing: with routine healing Qualified Code(s): S72.001D - Fracture of unspecified part of neck of right femur, subsequent encounter for closed fracture with routine healing (2) Status post hip hemiarthroplasty Problem: Acute
[2019-04-09] MEDS ORDERED: BISACODYL 10 MG SUPP.RECT RC ONE ×2 (13:28→16:52)
--- NOTE | 2019-04-09 17:03 | PN ---
Subjective - Date and Time Seen Date: 04/09/19 Time: 09:26 Subjective Narrative: Patient is minimally verbal and does not respond to questions. He does respond to verbal and tactile stimuli. Objective - Review of Systems Generalized/Overall Review: Denies: Chills, Fever Respiratory: Denies: Shortness of Breath Cardiac: Denies: Chest Pain Abdominal: Denies: Abdominal Pain Misc: All systems neg except as marked - Vitals Vitals: Last Vital Signs Temp 36.0 C 04/09/19 14:00 Pulse 62 04/09/19 14:00 Resp 12 04/09/19 14:00 BP 104/62 04/09/19 14:00 Pulse Ox 98 04/09/19 14:00 - Exam Constitutional: Present: Well developed, Well nourished, No distress ENT Exam: Present: hearing grossly normal Neck: Present: non-tender, trachea midline. Absent: lymphadenopathy (R), lymphadenopathy (L) Respiratory: Present: no respiratory distress, no accessory muscle use, No wheezing. Absent: crackles, rhonchi Cardiovascular/Chest: Present: normal peripheral pulses, regular rate, rhythm, no edema, no murmur Abdomen: Present: Normal bowel sounds, soft, nontender Extremity: Present: no pedal edema Skin Exam: Present: normal color, warm/dry Neurologic: Present: normal mood/affect Appearance: Present: appropriate appearance Eye contact: Present: cooperative Thoughts: Present: normal mood /affect Cauti Physician Documentation - Urinary Catheter Management Urethral (Hall) Urethral Indwelling: No Date of Insertion: 03/28/19 Time of Insertion: 10:30 Date of Removal: 04/02/19 Time of Removal: 11:15 Assessment/Plan Plan Narrative: 89-year-old male with a past medical history of dementia, hypertension, anxiety, insomnia presents with right hip fracture. He is postop and waiting for disposition to be determined. Plan #1 continue with pain management and anticoagulation #2 continue with physical therapy and Occupational Therapy #3 continue home medications for comorbidities #4 Encourage oral hydration for hypernatremia. - Problems/Diagnosis (1) Hypernatremia Problem: Acute (2) Hip fracture Problem: Acute Qualifiers: Encounter type: subsequent encounter Fracture type: closed Laterality: ri ght Fracture healing: with routine healing Qualified Code(s): S72.001D - Fracture of unspecified part of neck of right femur, subsequent encounter for closed fracture with routine healing (3) Dementia with behavioral disturbance Problem: Chronic Qualifiers: Dementia type: vascular dementia Qualified Code(s): F01.51 - Vascular dementia with behavioral disturbance (4) Atrial fibrillation with rapid ventricular response Problem: Resolved (5) Status post hip hemiarthroplasty Problem: Acute (6) Insomnia Problem: Chronic Qualifiers: Insomnia type: other insomnia Qualified Code(s): G47.09 - Other insomnia (7) Generalized anxiety disorder Problem: Chronic
[2019-04-10 06:55] LABS: Hematocrit 46.7 % (42.0-52.0); Hemoglobin 14.7 gm/dL (13.5-18.0); Mean Cell Volume 103.3 fl (78-100); Mean Corpuscular Hemoglobin 32.5 pg (27-31); Mean Corpuscular Hgb Conc 31.5 g/dl (32-36); Mean Platelet Volume 10.7 fl (8-11.3); Platelet Count 617 K/mm3 (150-450); Red Blood Count 4.52 M/mm3 (4.7-6.0); Red Cell Distribution Width 12.5 % (11.5-14.0)
[2019-04-10 06:58] LABS: Total Cells Counted 100
[2019-04-10 07:09] LABS: Albumin * 2.9 gm/dl (3.4-5.0); BUN/Creatinine Ratio 21.3 (9.0-21.6); Bilirubin, Total 0.7 mg/dL (0.0-1.1); Calcium * 9.4 mg/dL (7.9-10.9); Carbon Dioxide 30.7 mmol/L (24-32.6); Potassium 5.7 mmol/L (3.4-4.6); Total Protein 8.2 gm/dL (6.2-8.2)
[2019-04-10 07:29] LABS: Lymphocyte 2 % (20-51); Monocyte 2 % (0-9); Neutrophil 96 % (42-75); Platelet Estimate Increased (NORMAL); RBC Morphology Normal (NORMAL)
--- NOTE | 2019-04-10 08:34 | PN ---
Subjective - Date and Time Seen Date: 04/10/19 Time: 08:30 Subjective Narrative: Nursing reports some concern of some erythema around his incision. Objective Objective Narrative: Taking his dressings down his dressings are clean and dry. He has subtle reactive erythema related to the shekhar along the distal incision he has no active drainage and certainly that nothing that looks infectious. - Vitals Vitals: Last Vital Signs Temp 36.7 C 04/10/19 06:58 Pulse 115 H 04/10/19 06:58 Resp 20 04/10/19 06:58 BP 153/109 H 04/10/19 06:58 Pulse Ox 99 04/10/19 06:58 - Abnormal Lab Findings Abnormal Lab Findings: Abnormal Lab Results 04/10/19 04/10/19 Range/Units 06:50 06:50 WBC 24.0 H (4.0-10.5) K/mm3 RBC 4.52 L (4.7-6.0) M/mm3 MCV 103.3 H (78-100) fl MCH 32.5 H (27-31) pg MCHC 31.5 L (32-36) g/dl Plt Count 617 H (150-450) K/mm3 Neutrophils % (Manual) 96 H (42-75) % Lymphocytes % (Manual) 2 L (20-51) % Neutrophils # (Manual) 23.0 H (1.3-6.0) K/mm3 Lymphocytes # (Manual) 0.5 L (1.5-3.5) k/mm3 Platelet Estimate Increased H (NORMAL) Sodium 149 H (132-142) mmol/L Plasma Sodium 151 H (130-142) mmol/L Potassium 5.7 H D (3.4-4.6) mmol/L Chloride 108 H (97-106) mmol/L Anion Gap 16.0 H (6.8-13.8) mmol/L BUN 38 H D (6-23) mg/dL Creatinine 1.78 H D (0.4-1.4) mg/dL Est GFR (Non-Af Amer) 39 L D (60-130) mL/min Random Glucose 215 H (70-110) mg/dL ALT 88 H (19-67) U/L Albumin 2.9 L (3.4-5.0) gm/dl Cauti Physician Documentation - Urinary Catheter Management Urethral (Hall) Urethral Indwelling: No Date of Insertion: 03/28/19 Time of Insertion: 10:30 Date of Removal: 04/02/19 Time of Removal: 11:15 Assessment/Plan - Problems/Diagnosis (1) Hip fracture Problem: Acute Qualifiers: Encounter type: subsequent encounter Fracture type: closed Laterality: right Fracture healing: with routine healing Qualified Code(s): S72.001D - Fracture of unspecified part of neck of right femur, subsequent encounter for closed fracture with routine healing (2) Dementia with behavioral disturbance Problem: Chronic Qualifiers: Dementia type: vascular dementia Qualified Code(s): F01.51 - Vascular dementia with behavioral disturbance (3) Status post hip hemiarthroplasty Problem: Acute Narrative: Discussed with nursing I do not see anything concerning with regards to his hip incision. His white count did elevate to 24,000. It does not appear at this time that this is related to his hip hemiarthroplasty from his fracture. Will await medical's recommendations for concerns of elevation in his white count. (4) Leukocytosis Problem: Acute
[2019-04-10] MEDS ORDERED: DEXTROSE 5 % IN WATER 1,000 ML IV PRN (09:36)
[2019-04-10] MEDS: APIXABAN 5 MG TABLET PO SCH ×2 (09:50→20:11)
[2019-04-10] MEDS: DILTIAZEM HCL 240 MG CAP.SR.24H PO SCH ×2 (09:50→10:35)
[2019-04-10] MEDS: FOLIC ACID 1 MG TABLET PO SCH (09:51)
[2019-04-10] MEDS ORDERED: VANCOMYCIN HCL 1 GM in DEXTROSE 5 % IN WATER 250 ML IV SCH ×2 (10:00)
[2019-04-10] MEDS ORDERED: INSULIN LISPRO 100 UNITS/ML VIAL SC ONE (10:30)
[2019-04-10 10:48] LABS: Urine Bilirubin 1 mg/dl (NEGATIVE); Urine Blood Negative /ul (NEGATIVE); Urine Ketone Negative (NEGATIVE); Urine Nitrite Negative (NEGATIVE); Urine Protein 15 mg/dL (NEGATIVE); Urine Urobilinogen Normal (NORMAL); Urine pH 7.5 pH (5.0-7.0)
[2019-04-10] MEDS ORDERED: PIPERACILLIN SODIUM/TAZOBACTAM 3.375 GM in DEXTROSE 5 % IN WATER 100 ML IV ONE ×2 (11:00)
[2019-04-10 11:09] LABS: Urine Appearance Clear (CLEAR); Urine Bacteria None Seen; Urine Color Amber; Urine RBC None Seen /hpf (0-5); Urine WBC None Seen /hpf (0-5)
--- NOTE | 2019-04-10 12:51 | PN ---
Subjective - Date and Time Seen Date: 04/10/19 Time: 12:41 Subjective Narrative: Patient is septic most likely secondary to pneumonia. STAT labs,EKG, and CXR obtained, fluids started followed by vancomycin and zosyn. Started on D5W for hypernatremia. Received 5 units of insulin for hyperkalemia. Patient is not responsive to commands. Discussed with family Mary and Jerson Byers (Sister in law and Brother to Jair) about current management and quality of life. Family agreed to cease treatment and place patient on Hospice. Consent obtained over the phone and verified by Kayleen EDWARDS and myself at 12:15 pm. [facility] Hospice Consulted and once evaluated will d/c all orders and submit hospice orders. No further labs or imaging. Objective - Vitals Vitals: Last Vital Signs Temp 36.9 C 04/10/19 12:00 Pulse 112 H 04/10/19 12:00 Resp 23 H 04/10/19 12:00 BP 93/52 04/10/19 12:00 Pulse Ox 98 04/10/19 12:00 - Abnormal Lab Findings Abnormal Lab Findings: Abnormal Lab Results 04/10/19 04/10/19 04/10/19 Range/Units 06:50 06:50 09:58 WBC 24.0 H (4.0-10.5) K/mm3 RBC 4.52 L (4.7-6.0) M/mm3 MCV 103.3 H (78-100) fl MCH 32.5 H (27-31) pg MCHC 31.5 L (32-36) g/dl Plt Count 617 H (150-450) K/mm3 Neutrophils % (Manual) 96 H (42-75) % Lymphocytes % (Manual) 2 L (20-51) % Neutrophils # (Manual) 23.0 H (1.3-6.0) K/mm3 Lymphocytes # (Manual) 0.5 L (1.5-3.5) k/mm3 Platelet Estimate Increased H (NORMAL) D-Dimer (0.19-0.49) ug/mL Sodium 149 H (132-142) mmol/L Plasma Sodium 151 H (130-142) mmol/L Potassium 5.7 H D (3.4-4.6) mmol/L Chloride 108 H (97-106) mmol/L Anion Gap 16.0 H (6.8-13.8) mmol/L BUN 38 H D (6-23) mg/dL Creatinine 1.78 H D (0.4-1.4) mg/dL Est GFR (Non-Af Amer) 39 L D (60-130) mL/min Random Glucose 215 H (70-110) mg/dL Lactic Acid, Venous 2.6 H* (0.4-2.0) mmol/L ALT 88 H (19-67) U/L Albumin 2.9 L (3.4-5.0) gm/dl Urine Protein (NEGATIVE) mg/dL Urine Bilirubin (NEGATIVE) mg/dl Urine Comment 04/10/19 04/10/19 Range/Units 10:38 10:39 WBC (4.0-10.5) K/mm3 RBC (4.7-6.0) M/mm3 MCV (78-100) fl MCH (27-31) pg MCHC (32-36) g/dl Plt Count (150-450) K/mm3 Neutrophils % (Manual) (42-75) % Lymphocytes % (Manual) (20-51) % Neutrophils # (Manual) (1.3-6.0) K/mm3 Lymphocytes # (Manual) (1.5-3.5) k/mm3 Platelet Estimate (NORMAL) D-Dimer 3.59 H (0.19-0.49) ug/mL Sodium (132-142) mmol/L Plasma Sodium (130-142) mmol/L Potassium (3.4-4.6) mmol/L Chloride (97-106) mmol/L Anion Gap (6.8-13.8) mmol/L BUN (6-23) mg/dL Creatinine (0.4-1.4) mg/dL Est GFR (Non-Af Amer) (60-130) mL/min Random Glucose (70-110) mg/dL Lactic Acid, Venous (0.4-2.0) mmol/L ALT (19-67) U/L Albumin (3.4-5.0) gm/dl Urine Protein 15 H (NEGATIVE) mg/dL Urine Bilirubin 1 H (NEGATIVE) mg/dl Urine Comment Culture ordered L - EKG/Xray Findings EKG: other - sinus tachycardia EKG read: Reviewed by me XRAY: chest - left lower lobe pneumonia - Exam Constitutional: Present: Obtunded. Absent: Alert, Oriented x3, Cooperative ENT Exam: Present: other - not responsive Respiratory: Present: lungs clear, normal breath sounds, no respiratory distress, no accessory muscle use Cardiovascular/Chest: Present: normal peripheral pulses, no edema, no JVD, no murmur, tachycardia Abdomen: Present: Normal bowel sounds, soft Extremity: Present: normal range of motion, non-tender, normal inspection, no pedal edema, no calf tenderness Skin Exam: Present: normal color Neurologic: Absent: alert, oriented x 3 Appearance: Present: impaired recent memory, impaired remote memory Cauti Physician Documentation - Urinary Catheter Management Urethral (Hall) Urethral Indwelling: No Date of Insertion: 03/28/19 Time of Insertion: 10:30 Date of Removal: 04/02/19 Time of Removal: 11:15 Assessment/Plan Plan Narrative: Patient is septic most likely secondary to pneumonia. STAT labs,EKG, and CXR obtained, fluids started followed by vancomycin and zosyn. Started on D5W for hypernatremia. Received 5 units of insulin for hyperkalemia. Patient is not responsive to commands. Discussed with family Mary and Jerson Byers (Sister in law and Brother to Jair) about current management and quality of life. Family agreed to cease treatment and place patient on Hospice. Consent obtained over the phone and verified by Kayleen EDWARDS and myself at 12:15 pm. [facility]. Hospice Consulted and once evaluated will d/c all orders and submit hospice orders. No further labs or imaging. - Problems/Diagnosis (1) Sepsis Problem: Acute Qualifiers: Sepsis type: sepsis due to unspecified organism Sepsis acute organ dysfunction status: with acute organ dysfunction Severe sepsis acute organ dysfunction type: acute renal failure Acute renal failure type: unspecified Severe sepsis shock status: without septic shock Qualified Code(s): A41.9 - Sepsis, unspecified organism; R65.20 - Severe sepsis without septic shock; N17.9 - Acute kidney failure, unspecified (2) Hip fracture Problem: Acute Qualifiers: Encounter type: subsequent encounter Fracture type: closed Laterality: right Fracture healing: with routine healing Qualified Code(s): S72.001D - Fracture of unspecified part of neck of right femur, subsequent encounter for closed fracture with routine healing (3) Dementia with behavioral disturbance Problem: Chronic Qualifiers: Dementia type: vascular dementia Qualified Code(s): F01.51 - Vascular dementia with behavioral disturbance (4) Atrial fibrillation with rapid ventricular response Problem: Resolved (5) Dehydration with hypernatremia Problem: Resolved (6) Macrocytic anemia Problem: Chronic (7) Hyperglycemia Problem: Resolved (8) Cardiorenal syndrome with renal failure Problem: Resolved (9) Acute kidney failure Problem: Resolved Qualifiers: Acute renal failure type: unspecified Qualified Code(s): N17.9 - Acute kidney failure, unspecified (10) Metabolic encephalopathy Problem: Resolved (11) Leukocytosis Problem: Resolved Qualifiers: Leukocytosis type: leukemoid reaction Qualified Code(s): D72.823 - Leukemoid reaction
[2019-04-10] MEDS ORDERED: LORazepam 2 MG/ML DISP.SYRIN IV PRN (14:35)
[2019-04-10] MEDS ORDERED: ATROPINE SULFATE 50 DROP BTL SL PRN (14:35)
[2019-04-10] MEDS: MORPHINE SULFATE 2 MG/ML DISP.SYRIN IV PRN ×3 (15:25→16:54)
[2019-04-11] MEDS: MORPHINE SULFATE 2 MG/ML DISP.SYRIN IV PRN ×6 (00:49→09:49)
[2019-04-11 01:17] VITALS: BP 168/109
[2019-04-11] MEDS: MORPHINE SULFATE 10 MG/ML SYRG IV PRN ×6 (10:49→14:40)
[2019-04-11] MEDS: LORazepam 2 MG/ML DISP.SYRIN IV SCH ×5 (12:59→14:48)
--- NOTE | 2019-04-11 13:09 | PN ---
Subjective - Date and Time Seen Date: 04/11/19 Time: 08:30 Subjective Narrative: Patient is restless. Family has requested [employer] for his last rights. Morphine 2 mg q15 mins along with ativan. Hospice has been contacted about katharine vivar, and he is on his way. Objective - Review of Systems Generalized/Overall Review: Reports: Weakness Cardiac: Denies: Edema Musculoskeletal Complaints: Denies: Joint Pain - Vitals Vitals: Last Vital Signs Temp 37.2 C 04/11/19 01:15 Pulse 114 H 04/11/19 01:15 Resp 22 H 04/11/19 01:15 BP 168/109 H 04/11/19 01:15 Pulse Ox 95 04/11/19 01:15 - Exam Constitutional: Present: Obtunded Cauti Physician Documentation - Urinary Catheter Management Urethral (Hall) Urethral Indwelling: No Date of Insertion: 04/10/19 Time of Insertion: 14:00 Date of Removal: 04/02/19 Time of Removal: 11:15 Assessment/Plan Plan Narrative: On hospice. Katharine Vivar on his way for last rights. Will continue to monitor and adjust dose and frequency of morphine and ativan accordingly. - Problems/Diagnosis (1) Sepsis Problem: Acute Qualifiers: Sepsis type: sepsis due to unspecified organism Sepsis acute organ dysfunction status: with acute organ dysfunction Severe sepsis acute organ dysfunction type: acute renal failure Acute renal failure type: unspecified Severe sepsis shock status: without septic shock Qualified Code(s): A41.9 - Sepsis, unspecified organism; R65.20 - Severe sepsis without septic shock; N17.9 - Acute kidney failure, unspecified (2) Hip fracture Problem: Acute Qualifiers: Encounter type: subsequent encounter Fracture type: closed Laterality: right Fracture healing: with routine healing Qualified Code(s): S72.001D - Fracture of unspecified part of neck of right femur, subsequent encounter for closed fracture with routine healing (3) Dementia with behavioral disturbance Problem: Chronic Qualifiers: Dementia type: vascular dementia Qualified Code(s): F01.51 - Vascular dementia with behavioral disturbance (4) Atrial fibrillation with rapid ventricular response Problem: Resolved (5) Dehydration with hypernatremia Problem: Resolved (6) Macrocytic anemia Problem: Chronic (7) Hyperglycemia Problem: Resolved (8) Cardiorenal syndrome with renal failure Problem: Resolved (9) Acute kidney failure Problem: Resolved Qualifiers: Acute renal failure type: unspecified Qualified Code(s): N17.9 - Acute kidney failure, unspecified (10) Metabolic encephalopathy Problem: Resolved (11) Leukocytosis Problem: Resolved Qualifiers: Leukocytosis type: leukemoid reaction Qualified Code(s): D72.823 - Leukemoid reaction
--- NOTE | 2019-04-11 13:12 | PN ---
Progess Note - Interim Date: 04/11/19 Time: 12:55 Narrative: 04/11/19 13:11 Increased morphine to 10 mg [id number] at approximately 10 am Increased ativan to 2 mg q30 mins at 12:59 pm Discussed orders with Nurse Kayleen EDWARDS.
--- NOTE | 2019-04-11 17:15 | DS ---
Discharge Summary - Provider Primary Care Provider: Arthur Melgar Admitting Clinician: Christiano Ag Attending Physician on Admission: Christiano Ag Consult: hospice Consult: Roland Mitchell Pronouncing Clinician: Lacy Pollock - 15:02 - Date and Time Date of : 04/11/19 Time of : 15:02 - Diagnosis/Cause of (1) Sepsis Problems: Acute (2) Hip fracture Problems: Acute (3) Dementia with behavioral disturbance Problems: Chronic (4) Atrial fibrillation with rapid ventricular response Problems: Resolved (5) Dehydration with hypernatremia Problems: Resolved (6) Macrocytic anemia Problems: Chronic (7) Hyperglycemia Problems: Resolved (8) Cardiorenal syndrome with renal failure Problems: Resolved (9) Acute kidney failure Problems: Resolved (10) Metabolic encephalopathy Problems: Resolved (11) Leukocytosis Problems: Resolved - Summary Details (narrative): 89 y/o M with Dementia with behavioral disturbances admitted for right hip fracture. Ortho consulted, right hip repair completed by Dr. Mitchell. POD #1 patient went into A-fib RVR, Started on cardizem drip, became rate controlled and cardioverted wened off drip and transitioned to PO Cardizem. POD #2, patient became fluid overloaded and oligouric and went into cardiorenal failure with hypotension requiring pressors, diuresed well, and patient became alert and responsive to his name. Later that day patient patient went back into A-fib rvr, resumed cardizem drip, cardioverted and cardizem PO dose increased. Over the course of hospitalization patient was put on drip 3 times, with final dose of cardizem 225 po daily and started on eliquis. Patient had poor oral intake post-op, improved slightly, however did not tolerate PT. Unable to discharge patient because we could not find a facility to admit. On POD #7 D/C' daily labs, and continued medications, PT as tolerated. On 04/10/19, routine lab blood draw and vital signs were so concerning for sepsis of unknown etiology, however most likely secondary to LLl PNA. Followed protocol and started treatment for sepsis, however at this point patient was minimally responsive. Discussed with family about care and how much intervention they would want especially due to hi s deteriorating condition. Family decided to stop all treatment on 04/10/19 @ 12:15. Hospice Consulted, and once evaluated by [facility] hospice, all treatment discontinued, and comfort orders placed. Quality Auditor came and prayed with patient. Family requested 04/11/19 08:00 am for a category manager to read him his last rights. Roll Operator stopped by and patient had his last rights. Morphine and Ativan dosing and frequency increased accordingly. Patient at 15:02 on 04/11/19. Pronounced by nurse Lacy Zuleta RN. Family notified and attending physician notified. Procedures Performed: see notes below Procedure Performed: right hip arthroplasty - Additional Data Confirmation of as documented by pronouncing clinician: no pulse, no respirations, no heart sounds, pupils fixed and dilated Family: contacted Additional persons at bedside: jason - John EDWARDS Practitioner(Attending/PCP) notified: Yes - 15:45 Attending physician: Christiano Ag Was code activated: No Autopsy requested: No Ruffling Hemmer Automatic notified: No Organ Bank notified: No Advance Directives: No Hospice patient: Yes
== END 2019-04-11 15:02 | disposition expired | DRG 469 ==
LOC: ER 18:40 → MS 20:47 → SCU 03-30 06:10 → MS 04-01 15:47 → SCU 04-03 12:36 → MS 04-04 09:02
PROVIDERS: ADMIT Family Medicine; ATTEND Family Medicine
DX: I48.91 Unspecified atrial fibrillation; E87.0 Hyperosmolality and hypernatremia; I10 Essential (primary) hypertension; G93.41 Metabolic encephalopathy; D72.823 Leukemoid reaction; G47.09 Other insomnia; D53.9 Nutritional anemia, unspecified; J18.9 Pneumonia, unspecified organism; R65.20 Severe sepsis without septic shock; T17.990A Other foreign object in respiratory tract, part unspecified in causing asphyxiation, initial encounter; F41.1 Generalized anxiety disorder; Z87.891 Personal history of nicotine dependence; S72.031A Displaced midcervical fracture of right femur, initial encounter for closed fracture; N17.9 Acute kidney failure, unspecified; E87.70 Fluid overload, unspecified; R73.9 Hyperglycemia, unspecified; I48.92 Unspecified atrial flutter; W07.XXXA Fall from chair, initial encounter; F03.91 Unspecified dementia, unspecified severity, with behavioral disturbance; R57.0 Cardiogenic shock; E86.0 Dehydration; E87.5 Hyperkalemia
CPT/HCPCS: 36415; 70450; 71010; 71045; 73502; 80048; 80053; 81001; 82550; 82553; 82607; 82746; 83519; 83605; 83880; 83935; 84300; 84439; 84443; 84484; 85007; 85025; 85379; 85610; 85730; 86850; 87040; 87081; 87086; 88305; 88311; 92507; 92526; 93005; 93306; 94640; 97110; 97162; 97165; 97530; 99284; 99285; J2405